=== PATIENT | male | born 1955 | race Caucasian/White ===

== ENCOUNTER 2016-07-07 14:50 | Emergency (ER) | payer BC ==
[2016-07-07 19:47] LABS: Urine Bilirubin Negative (Negative); Urine Glucose Negative (Negative); Urine Nitrite Negative (Negative)
[2016-07-07 20:13] LABS: Hematocrit 42 % (42-52); Hemoglobin 14.2 g/dl (14.0-18.0); Mean Corpuscular HGB Conc 34 g/dl (31-36); Mean Corpuscular Hemoglobin 33 pg (27-31); Mean Corpuscular Volume 97 fL (80-94); Mean Platelet Volume 8 um3 (7.4-10.4); Red Blood Count 4.37 10^6/ul (4.0-5.4); Red Cell Distribution Width 13 % (10.5-15); White Blood Count 5.8 10^3/ul (3.5-10.8)
[2016-07-07 20:30] LABS: ALT 36 U/L (7-52); AST 22 U/L (13-39); Albumin 4.1 g/dL (3.2-5.2); Alkaline Phosphatase 67 U/L (34-104); Anion Gap 5 mmol/L (2-11); BUN/Creatinine Ratio 17.9 (8-20); Blood Urea Nitrogen 15 mg/dL (6-24); CO2 Carbon Dioxide 23 mmol/L (22-32); Calcium 9.4 mg/dL (8.6-10.3); Chloride 110 mmol/L (101-111); EGFR African American 119.1 (>60); EGFR Non-African American 92.6 (>60); Globulin 2.5 g/dL (2-4); Glucose 98 mg/dL (70-100); Potassium 4.1 mmol/L (3.5-5.0); Sodium 138 mmol/L (133-145); Total Protein 6.6 g/dL (6.4-8.9)
--- NOTE | 2016-07-07 20:42 | RAD ---
HISTORY: Speech aphasia COMPARISONS: None TECHNIQUE: Multiple contiguous axial CT scans were obtained of the head without intravenous contrast. FINDINGS: HEMORRHAGE/INFARCT: There is no hemorrhage or acute infarct. MASSES/SHIFT: There is no mass or shift. EXTRA-AXIAL SPACES: There are no extra-axial fluid collections. SULCI AND VENTRICLES: The sulci and ventricles are normal in size and position for the patient's stated age. CEREBRUM: There are no focal parenchymal abnormalities. BRAINSTEM: There are no focal parenchymal abnormalities. CEREBELLUM: There are no focal parenchymal abnormalities. VESSELS: The vessels are grossly normal. PARANASAL SINUSES: The paranasal sinuses are clear. ORBITS: The orbits are unremarkable. BONES AND SOFT TISSUE: No bone or soft tissue abnormalities are noted. OTHER: None IMPRESSION: NO ACUTE INTRACRANIAL PATHOLOGY.
[2016-07-07 20:50] LABS: Alcohol < 10 mg/dL (<10)
--- NOTE | 2016-07-07 22:03 | ED ---
Boo Cordova Billy, scribed for Luiz Haji MD on 07/07/16 at 1941 . Complex/Multi-Sys Presentation - HPI Summary HPI Summary: Patient is a 61 year-old male coming to [facility] for evaluation of "panic attack" yesterday. Patient states that he had a sudden onset of weakness, confusion, and disorientation. He reports that one of his co-workers speaking to him at the time told him that he was speaking nonsense and using seemingly random works out of context. He also reports memory loss: he states that he was unable to recall his 's phone number despite calling his every day in the past. These symptoms lasted 3-4 hours before resolving spontaneously. He also reports a headache for the last 2 days, despite not having a history of headache. He states that at this time in the ED, he feels asymptomatic. - History Of Current Complaint Chief Complaint: EDGeneral Time Seen by Provider: 07/07/16 19:30 Hx Obtained From: Patient Onset/Duration: Sudden Onset, Lasting Hours, Resolved Timing: Constant Severity Currently: Moderate Severity Initially: Moderate Location: Negative Aggravating Factor(s): none Alleviating Factor(s): spontaneous resolution Associated Signs And Symptoms: Positive: Confusion, Weakness, Headache, Other - disorientation, memory loss, aphasia, "panic attack" - Allergies/Home Medications Allergies/Adverse Reactions: Allergies Allergy/AdvReac Type Severity Reaction Status Date / Time No Known Allergies Allergy Verified 04/07/15 13:25 PMH/Surg Hx/FS Hx/Imm Hx Endocrine/Hematology History: Denies: Hx Diabetes Cardiovascular History: Reports: Hx Hypercholesterolemia, Hx Hypertension - ON MEDS Denies: Hx Congestive Heart Failure, Hx Pacemaker/ICD Sensory History: Reports: Hx Contacts or Glasses, 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 Vacectomy 1994. 11/22/2014 - lap appy Hx Anesthesia Reactions: No Infectious Disease History: No Infectious Disease History: Denies: Traveled Outside the [place] in Last 30 Days - Family History Known Family History: Positive: Hypertension, Other - dementia - Social History Alcohol Use: Occasionally Alcohol Amount: 2 days a week Substance Use Type: Reports: None Smoking Status (MU): Never Smoked Tobacco Review of Systems Negative: Fever Neurological: Other - aphasia, confusion, disorientation, "panic attack," memory loss Positive: Headache, Weakness All Other Systems Reviewed And Are Negative: Yes Physical Exam - Summary Physical Exam Summary: VITAL SIGNS: Reviewed. GENERAL: Patient is a well developed and nourished male who is lying comfortable in the stretcher. Patient is not in any acute respiratory distress. HEAD AND FACE: No signs of trauma. No ecchymosis, hematomas or skull depressions. No sinus tenderness. EYES: PERRLA, EOMI x 2, No injected conjunctiva, no nystagmus. No photophobia. EARS: Hearing grossly intact. Ear canals and tympanic membranes are within normal limits. MOUTH: Oropharynx within normal limits. NECK: Supple, trachea is midline, no adenopathy, no JVD, no carotid bruit, no c- spine tenderness, neck with full ROM. No meningeal signs, no Kernig's or brudzinskis signs. CHEST: Symmetric, no tenderness at palpation LUNGS: Clear to auscultation bilaterally. No wheezing or crackles. CVS: Regular rate and rhythm, S1 and S2 present, no murmurs or gallops appreciated. ABDOMEN: Soft, non-tender. No signs of distention. No rebound no guarding, and no masses palpated. Bowel sounds are normal. EXTREMITIES: FROM in all major joints, no edema, no cyanosis or clubbing. NEURO: Alert and oriented x 3. No acute neurological deficits. Speech is normal and follows commands. NIH score is 0 SKIN: Dry and warm Triage Information Reviewed: Yes Vital Signs On Initial Exam: Initial Vitals Temp Pulse Resp BP Pulse Ox 97.9 F 80 20 160/97 96 07/07/16 14:53 07/07/16 14:53 07/07/16 14:53 07/07/16 14:53 07/07/16 14:53 Vital Signs Reviewed: Yes Diagnostics - Vital Signs Vital Signs Temp Pulse Resp BP Pulse Ox 07/07/16 18:24 98.1 F 76 20 136/81 96 07/07/16 17:35 98.1 F 70 20 130/71 97 07/07/16 16:25 98.1 F 77 20 120/72 95 07/07/16 14:53 97.9 F 80 20 160/97 96 - Laboratory Lab Results: Lab Results 07/07/16 07/07/16 Range/Units 19:38 20:05 WBC 5.8 (3.5-10.8) 10^3/ul RBC 4.37 (4.0-5.4) 10^6/ul Hgb 14.2 (14.0-18.0) g/dl Hct 42 (42-52) % MCV 97 H (80-94) fL MCH 33 H (27-31) pg MCHC 34 (31-36) g/dl RDW 13 (10.5-15) % Plt Count 341 (150-450) 10^3/ul MPV 8 (7.4-10.4) um3 Neut % (Auto) 40.1 (38-83) % Lymph % (Auto) 43.5 (25-47) % [place] % (Auto) 8.0 (1-9) % Eos % (Auto) 6.8 H (0-6) % Baso % (Auto) 1.6 (0-2) % Absolute Neuts (auto) 2.3 (1.5-7.7) 10^3/ul Absolute Lymphs (auto) 2.5 (1.0-4.8) 10^3/ul Absolute Monos (auto) 0.5 (0-0.8) 10^3/ul Absolute Eos (auto) 0.4 (0-0.6) 10^3/ul Absolute Basos (auto) 0.1 (0-0.2) 10^3/ul Absolute Nucleated RBC 0 10^3/ul Nucleated RBC % 0 Urine Color Yellow Urine Appearance Clear Urine pH 5.0 (5-9) Ur Specific [place] 1.017 (1.010-1.030) Urine Protein Negative (Negative) Urine Ketones Negative (Negative) Urine Blood Negative (Negative) Urine Nitrate Negative (Negative) Urine Bilirubin Negative (Negative) Urine Urobilinogen Negative (Negative) Ur Leukocyte Esterase Negative (Negative) Urine Glucose Negative (Negative) Result Diagrams: 07/07/16 20:05 07/07/16 20:05 Lab Statement: Any lab studies that have been ordered have been reviewed, and results considered in the medical decision making process. - CT brain CT Interpretation: No Acute Changes CT Interpretation Completed By: Radiologist Re-Evaluation - Re-Evaluation First Eval Re-Evaluation Time: 21:58 Change: Unchanged Comment: Continues to be asymptomatic. Complex Multi-Symp Course/Dx Assessment/Plan: Patient is a 61 year-old male coming to [facility] for evaluation of "panic attack" yesterday. Patient states that he had a sudden onset of weakness, confusion, and disorientation. He reports that one of his co-workers speaking to him at the time told him that he was speaking nonsense and using seemingly random works out of context. He also reports memory loss: he states that he was unable to recall his 's phone number despite calling his every day in the past. These symptoms lasted 3-4 hours before resolving spontaneously. He also reports a headache for the last 2 days, despite not having a history of headache. He states that at this time in the ED, he feels asymptomatic. Bloodwork WNL. CT shows no acute intracranial pathology. EKG shows NSR without ST elevations. In the ED course, patient continues to be asypmtomatic. I discussed my physical exam findings and test results with Dr. Urban who recommended to discharge the patient with ASA and to have him follow up as an outpatient in his office. He also agreed to arrange for MRI, carotid doppler, and echo for further testing to r/o small vessel ischemic disease. Before discharge, pt continues to be A&Ox3 and neurologically intact. Patient will follow up with Dr. Urban next week. He was given instructions to return to the ED with slurred speech, facial droop, upper/lower extremity weakness, tingling, or numbness. He understands and agrees. - Diagnoses Differential Diagnoses/HQI/PQRI: CVA, Other - TIA, anxiety Provider Diagnoses: anxiety vs. TIA - Physician Notifications Discussed Care Of Patient With: Dr. Urban (neurology) @ [id number]: recommends discharge on ASA and follow up as outpatient; Dr. Urban agreed to arrange for MRI, carotid doppler, and echo to r/o small vessel ischemic disease. Discharge - Discharge Plan Condition: Stable Disposition: HOME Patient Education Materials: Panic Attack (ED), Anxiety (ED), Transient Ischemic Attack (ED) Referrals: Gokul Mcginnis MD [Primary Care Provider] - Flaco Urban MD [Medical Doctor] - Additional Instructions: FOLLOW UP WITH DR. URBAN (NEUROLOGIST). The documentation as recorded by the jeffreyibBoo godwin Billy accurately reflects the service I personally performed and the decisions made by me, Luiz Haji MD.
[2016-07-07 22:06] VITALS: BP 109/68
== END 2016-07-07 22:13 | disposition home or self-care (01) ==
LOC: ED 14:50
DX: F41.9 Anxiety disorder, unspecified (principal); G45.9 Transient cerebral ischemic attack, unspecified; R41.0 Disorientation, unspecified; R41.3 Other amnesia; R47.01 Aphasia; R53.1 Weakness; R51 Headache
CPT/HCPCS: 36415; 70450; 80053; 80320; 81003; 84484; 85025; 85610; 99282; G0480

== ENCOUNTER 2016-08-28 09:26 | Emergency (ER) | payer SELFPAY ==
[2016-08-28 09:30] VITALS: BP 139/86
[2016-08-28] MEDS ORDERED: Ibuprofen TAB* 800 MG PO ONE (10:38)
[2016-08-28] MEDS ORDERED: Tetan/Diph/Pertus SYR(Tdap)* 0.5 ML SYR(BOOSTRIX) use SYR IM ONE (10:38)
--- NOTE | 2016-08-28 10:57 | ED ---
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 Pt reports dog got scared and but him while he was holding him - he didn't want to drop him so held on. Pt has a bite injury to his Lt thumb which is painful. He has 2 longer lacerations along Lt forearm and some puncture bte wounds to Rt wrist area. He's not sure if his tetanus vaccine is completely UTD and would like booster today. He does know the dog has had all of its vaccines and no risk of rabies. Pt denies numbness, weakness in areas of bites. He has a residual Lt forearm paresthesia s/p shoulder injury w/ surgical repair in the past - nerve sx do not seem different today. Has not tried anything for pain as it's been feeling okay until cleaned out by nurse. Would like ibuprofen at this time. - History of Current Complaint Chief Complaint: EDAnimalBite Stated Complaint: DOG BITE COMMING FROM WORK Time Seen by Provider: 08/28/16 09:55 Hx Obtained From: Patient Pain Intensity: 2 - Allergies/Home Medications Allergies/Adverse Reactions: Allergies Allergy/AdvReac Type Severity Reaction Status Date / Time No Known Allergies Allergy Verified 08/28/16 09:30 PMH/Surg Hx/FS Hx/Imm Hx Previously Healthy: Yes Endocrine/Hematology History: Denies: Hx Anticoagulant Therapy, Hx Blood Disorders, Hx Diabetes, Hx Unexplained Bleeding Cardiovascular History: Reports: Hx Hypercholesterolemia, Hx Hypertension - ON MEDS Denies: Hx Congestive Heart Failure, Hx Pacemaker/ICD Sensory History: Reports: Hx Contacts or Glasses, 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 Vacectomy 1994. 11/22/2014 - lap appy Hx Anesthesia Reactions: No - Immunization History Immunizations Up to Date: Unable to Obtain/Confirm - tetanus Infectious Disease History: No Infectious Disease History: Denies: Hx of Known/Suspected MRSA, Traveled Outside the [place] in Last 30 Days - Family History Known Family History: Positive: Hypertension, Other - dementia - Social History Occupation: Employed Full-time Lives: With Family Alcohol Use: Rare Hx Substance Use: No Substance Use Type: Reports: None Hx Tobacco Use: No Smoking Status (MU): Never Smoked Tobacco Review of Systems Positive: no symptoms reported Musculoskeletal: Other - see HPI Skin: Other - see HPI Neurological: Other - see HPI Psychological: Normal All Other Systems Reviewed And Are Negative: Yes Physical Exam Triage Information Reviewed: Yes Vital Signs On Initial Exam: Initial Vitals Temp Pulse Resp BP Pulse Ox 97.0 F 79 16 139/86 98 08/28/16 09:27 08/28/16 09:27 08/28/16 09:27 08/28/16 09:27 08/28/16 09:27 Vital Signs Reviewed: Yes Appearance: Positive: Well-Appearing, No Pain Distress, Well-Nourished Skin: Positive: Warm - 2 linear lacerations over t dorsal forearm - subcutaneous tissue observed here - no FB observed; Lt thumb w/ linear laceration over distal palmar pad aspect and a small sliver of the lateral lanula/eponychium is bleeding Head/Face: Positive: Normal Head/Face Inspection Eyes: Positive: Normal, EOMI ENT: Positive: Hearing grossly normal, Pharynx normal Respiratory/Lung Sounds: Positive: Breath Sounds Present Cardiovascular: Positive: Normal, Pulses are Symmetrical in both Upper and Lower Extremities Musculoskeletal: Positive: Normal, Strength/ROM Intact Neurological: Positive: Normal, Sensory/Motor Intact - baseline numbness over Lt central dorsal forearm, Alert, Oriented to Person Place, Time, CN Intact II- III Psychiatric: Positive: Normal Procedures - Laceration/Wound Repair 1 Location: upper extremity Description: Linear Anesthesia: Local, .5%, Marcaine Length, Depth and Shape: 2.5cm x 3mm Betadine Prep?: Yes Irrigated w/ Saline (ccs): 250 Laceration/Wound Explored: clean Closure: Single Layer Suture Type: Nylon - 5-0 Number of Sutures: 3 Layer Closure?: No Sterile Dressing Applied?: Yes - triple anbx + gauze wrap 2 Location: upper extremity Description: Linear Anesthesia: Local, .5%, Marcaine Length, Depth and Shape: 2.5cm x 3mm Betadine Prep?: Yes Irrigated w/ Saline (ccs): 250 Laceration/Wound Explored: clean Closure: Single Layer Suture Type: Nylon - 5-0 Number of Sutures: 4 Layer Closure?: No Sterile Dressing Applied?: Yes - triple anbx + gauze wrap Diagnostics - Vital Signs Vital Signs Temp Pulse Resp BP Pulse Ox 08/28/16 09:27 97.0 F 79 16 139/86 98 - Laboratory Lab Statement: Any lab studies that have been ordered have been reviewed, and results considered in the medical decision making process. Bite Injury Course/Dx - Diagnoses Provider Diagnosis: Dog bite of multiple sites of left upper arm, Dog bite of right hand, Open fracture of tuft of distal phalanx of left thumb Discharge - Discharge Plan Condition: Stable Disposition: HOME Prescriptions: Amoxicillin/Clavulanate TAB* [Augmentin TAB 875*] 875 mg PO BID #19 tab Patient Education Materials: Animal Bite (ED), Puncture Wound (ED), Thumb Fracture (ED) Forms: *Work Release Referrals: Lili Piña MD [Medical Doctor] - Additional Instructions: Keep your sutures dressing clean, dry and intact for 48 hours. After this time, you may remove dressings to gently wash with soap and water each day - rinse well and pat dry with clean cloth - reapply triple antibiotic ointment and clean gauze dressing. For your puncture wounds, you may soak daily in soapy water, rinse well alternating with epsom salt soak to reduce swelling and allow for drainage to prevent infection. Do not occlude with triple antibiotic dressing as this will impede drainage Rest, ice, elevate and may take ibuprofen with food as needed for pain and swelling relief. Keep a splint on your Left thumb until cleared by hand specialist. Follow-up with hand specialist in 3 days for wound check. Call tomorrow to schedule an appointment. Contact information included below. You may have your sutures removed in 10-14 days (or sooner if necessary - hand specialist will decide). *If you develop redness, swelling, purulent drainage, streaking, fever or pain with movement of wrist/fingers, return to ED.
[2016-08-28] MEDS ORDERED: Amoxicillin/Clavulanate TAB* 875 MG PO ONE (10:59)
--- NOTE | 2016-08-28 11:30 | RAD ---
INDICATION: .Dogbite left thumb. TECHNIQUE: 3 views of the left thumb were obtained. FINDINGS: There is soft tissue swelling adjacent to the distal phalanx. There is a small fracture fragment arising from the medial tuft of the distal phalanx measuring 2 mm in size. No other fractures are seen. IMPRESSION: FRACTURE OF THE TUFT OF THE DISTAL PHALANX.
== END 2016-08-28 12:54 | disposition home or self-care (01) ==
LOC: ED 09:26
DX: S62.502B Fracture of unspecified phalanx of left thumb, initial encounter for open fracture (principal); S41.132A Puncture wound without foreign body of left upper arm, initial encounter; S61.431A Puncture wound without foreign body of right hand, initial encounter; W54.0XXA Bitten by dog, initial encounter; Y93.9 Activity, unspecified; Y92.9 Unspecified place or not applicable
CPT/HCPCS: 90715; 96372; 99282; A9270-GY

== ENCOUNTER 2017-10-08 18:10 | Emergency (ER) | payer BC ==
[2017-10-08 18:15] VITALS: BP 164/102
[2017-10-08] MEDS ORDERED: Lidocaine 1% INJ* 10 MG/ML 30 ML SDV INJ ONE (18:17)
--- NOTE | 2017-10-08 18:34 | ED ---
Laceration/Wound HPI - HPI Summary HPI Summary: 62M presents with fish hook in his nose today. He states he was releasing the fish hook from the fish when he got it caught in his nose. He could not remove the hook. The area is currently oozing. no other injury. tetanus is up to date. no blood in nasal passage. - History of Current Complaint Stated Complaint: FISH HOOK IN NOSE Time Seen by Provider: 10/08/17 18:16 Pain Intensity: 4 - Allergy/Home Medications Allergies/Adverse Reactions: Allergies Allergy/AdvReac Type Severity Reaction Status Date / Time No Known Allergies Allergy Verified 09/16/16 08:18 PMH/Surg Hx/FS Hx/Imm Hx Endocrine/Hematology History: Denies: Hx Anticoagulant Therapy, Hx Blood Disorders, Hx Diabetes, Hx Unexplained Bleeding Cardiovascular History: Reports: Hx Hypercholesterolemia, Hx Hypertension - ON MEDS Denies: Hx Congestive Heart Failure, Hx Pacemaker/ICD History: Denies: Hx Renal Disease Sensory History: Reports: Hx Contacts or Glasses, 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 Vasectomy 1994. 11/22/2014 - lap appy. LEFT SHOULDER ROTATOR CUFF REPAIR 07/2015 Hx Anesthesia Reactions: No Infectious Disease History: No Infectious Disease History: Denies: Hx of Known/Suspected MRSA, Traveled Outside the [place] in Last 30 Days - Family History Known Family History: Positive: Hypertension, Other - dementia - Social History Alcohol Use: Rare Alcohol Amount: 2 days a week Hx Substance Use: No Substance Use Type: Reports: None Hx Tobacco Use: No Smoking Status (MU): Never Smoked Tobacco Review of Systems Negative: Fever Negative: Chest Pain Negative: Shortness Of Breath Positive: Other - fish hook in nose All Other Systems Reviewed And Are Negative: Yes Physical Exam Triage Information Reviewed: Yes Vital Signs On Initial Exam: Initial Vitals Temp Pulse Resp BP Pulse Ox 97.7 F 77 18 164/102 95 10/08/17 18:13 10/08/17 18:13 10/08/17 18:13 10/08/17 18:13 10/08/17 18:13 Vital Signs Reviewed: Yes Appearance: Positive: Well-Appearing Skin: Positive: Warm, Dry, Other - fish hook left side nose Head/Face: Positive: Normal Head/Face Inspection Eyes: Positive: Normal, EOMI, BRENDAN, Conjunctiva Clear ENT: Positive: Normal ENT inspection, Pharynx normal, TMs normal Respiratory/Lung Sounds: Positive: Clear to Auscultation, Breath Sounds Present Cardiovascular: Positive: Normal, RRR Musculoskeletal: Positive: Normal Neurological: Positive: Normal Psychiatric: Positive: Normal Procedures - Laceration/Wound Repair 1 Location: face Length, Depth and Shape: made 1/2cm superficial laceration to nose to remove fish hook Laceration/Wound Explored: foreign body removed Closure: Single Layer Suture Type: Prolene Number of Sutures: 2 Diagnostics - Vital Signs Vital Signs Temp Pulse Resp BP Pulse Ox 10/08/17 18:13 97.7 F 77 18 164/102 95 - Laboratory Lab Statement: Any lab studies that have been ordered have been reviewed, and results considered in the medical decision making process. Laceration Repair Course/Dx - Course Course Of Treatment: 62M presents with fish hook in his nose today. He states he was releasing the fish hook from the fish when he got it caught in his nose. He could not remove the hook. The area is currently oozing. no other injury. tetanus is up to date. no blood in nasal passage. on exam has fish hook in left nostril. placed lidocaine in area and created 1/2cm incision to remove hook. placed 2 sutures in close incision. told to keep clean. patient understand and agrees with plan. - Differential Dx Differental Diagnoses: Abrasion, Avulsion, Foreign Body - Clinical Impression Provider Diagnoses: Foreign body of nose Discharge - Sign-Out/Discharge Documenting (check all that apply): Discharge/Admit/Transfer - Discharge Plan Condition: Good Disposition: HOME Patient Education Materials: Care For Your Stitches (ED) Referrals: Gokul Mcginnis MD [Primary Care Provider] - Additional Instructions: wash area twice a day Take Tylenol or ibuprofen for pain every 6 hours Return to ED or primary for suture removal in 5 days Return to ED if develop signs of infection such as fever, spreading redness, or pus formation - Billing Disposition and Condition Condition: GOOD Disposition: HOME
== END 2017-10-08 19:10 | disposition home or self-care (01) ==
LOC: ED 18:10
DX: S01.21XA Laceration without foreign body of nose, initial encounter (principal); W45.8XXA Other foreign body or object entering through skin, initial encounter; W22.8XXA Striking against or struck by other objects, initial encounter; Y93.89 Activity, other specified; Y92.9 Unspecified place or not applicable
CPT/HCPCS: 12011; 99281

== ENCOUNTER 2018-07-30 20:31 | Emergency (ER) | payer BC ==
[2018-07-30 21:03] VITALS: BP 116/78
--- NOTE | 2018-07-30 22:06 | UC ---
Back Pain HPI - HPI Summary HPI Summary: 63-year-old male comes to clinic with a chief complaint of right flank pain. Started about 2 days ago. Pain is less at rest it's worse with twisting turning bending. He did shovel snow 2-3 days ago. Denies any anterior abdominal pain. Pain radiates up the right posterior thoracic chest. No anterior chest pain. The pain does not radiate down to the groin. He has not noticed any urinary frequency or urgency. He does have a history of a urethral stricture. Does not have any pain in the suprapubic region or the left flank. He's had his appendix out no other abdominal surgeries. Normal bowel movements. Normal appetite. No fevers or chills. No rash. Positive URI Sx with cough and phlegm production. Several pneumonias in the last few years. Uses CPAP. - History of Current Complaint Chief Complaint: UCGU Stated Complaint: ABDOMINAL PAIN, AND SIDE PAIN Time Seen by Provider: 07/30/18 21:23 Pain Intensity: 8 - Allergies/Home Medications Allergies/Adverse Reactions: Allergies Allergy/AdvReac Type Severity Reaction Status Date / Time No Known Allergies Allergy Verified 07/30/18 21:03 Home Medications: Home Medications Alprazolam XR (NF) [Xanax XR (NF)] 1 mg PO DAILY 07/30/18 [History Confirmed 09/14] Mirtazapine TAB* [Remeron TAB*] 7.5 mg PO BEDTIME 07/30/18 [History Confirmed ] Pregabalin CAP(*) [Lyrica CAP(*)] 200 mg PO DAILY 07/30/18 [History Confirmed ] Rosuvastatin Calcium [Crestor] 20 mg PO DAILY 07/30/18 [History Confirmed ] PMH/Surg Hx/FS Hx/Imm Hx Previously Healthy: Yes - URETHRAL STRICURE Endocrine History: Dyslipidemia Cardiovascular History: Hypertension Respiratory History: Pneumonia Other Respiratory History: Uses CPAP Other History Of: Negative For: Anticoagulant Therapy - Surgical History Surgical History: Yes Surgery Procedure, Year, and Place: Tonsilectomy 3 years old. Vasectomy 1994. 11/22/2014 - lap appy. LEFT SHOULDER ROTATOR CUFF REPAIR 07/2015 - Family History Known Family History: Positive: Hypertension, Other - dementia - Social History Alcohol Use: Rare Alcohol Amount: 2 days a week Substance Use Type: None Smoking Status (MU): Never Smoked Tobacco - Immunization History Most Recent Influenza Vaccination: 2013 Most Recent Tetanus Shot: 4-5 years ago Most Recent Pneumonia Vaccination: none Review of Systems All Other Systems Reviewed And Are Negative: Yes Constitutional: Positive: Negative Skin: Positive: Negative Eyes: Positive: Negative ENT: Positive: Negative Respiratory: Positive: Negative Cardiovascular: Positive: Other - SEE HPI Gastrointestinal: Positive: Other - SEE HPI Genitourinary: Positive: Negative. Negative: Dysuria, Hematuria, Frequency, Urgency, Vaginal/Penile Burning Motor: Positive: Negative Neurovascular: Positive: Negative Musculoskeletal: Positive: Other: - SEE HPI Neurological: Positive: Negative Psychological: Positive: Negative Is Patient Immunocompromised?: No Physical Exam Triage Information Reviewed: Yes Appearance: Well-Appearing, Well-Nourished, Pain Distress - MILD WITH ROM Vital Signs: Initial Vital Signs Temp 98.6 F 07/30/18 20:57 Pulse 84 07/30/18 20:57 Resp 20 07/30/18 20:57 BP 116/78 07/30/18 20:57 Pulse Ox 92 07/30/18 20:57 Vital Signs Reviewed: Yes Eye Exam: Normal Eyes: Positive: Conjunctiva Clear Neck exam: Normal Neck: Positive: Supple Respiratory: Positive: Lungs clear, Normal breath sounds, No respiratory distress Cardiovascular: Positive: RRR Abdomen Description: Positive: Nontender, Soft, CVA Tenderness (R) Bowel Sounds: Positive: Present Musculoskeletal Exam: Normal Musculoskeletal: Positive: Strength Intact, ROM Intact Neurological Exam: Normal Neurological: Positive: Alert, Muscle Tone Normal Psychological Exam: Normal Psychological: Positive: Normal Response To Family, Age Appropriate Behavior Skin Exam: Normal Back Pain Course/Dx - Course Course Of Treatment: EXAM: CT Chest Without Contrast. EXAM DATE/TIME: 2018 9:54 PM. CLINICAL HISTORY: 63 years old, male; Pain; Chest pain; Right- sided chest pain; Patient HX: Right sided lower quadrant pain radiates posteriorly and up back. No other. abdominal symptoms. Pain radiates up back and into right upper back. Right. sided chest pain at times. ; Additional info : RT flank/rt posterior thoracic. pain. TECHNIQUE: Axial computed tomography images of the chest without intravenous contrast. All CT scans at this facility use at least one of these dose optimization. techniques: automated exposure control; mA and/or kV adjustment per patient. size (includes targeted exams where dose is matched to clinical indication); or. iterative reconstruction. Coronal and sagittal reformatted images were created and reviewed. COMPARISON: No relevant prior studies available. FINDINGS: Thyroid : No thyroid nodules. Lungs: Atelectasis versus parenchymal scarring anterior segment right upper. lobe along the horizontal fissure. Combination of atelectasis, brachial. scarring, and consolidation involving the superior and posterior basal segments. of the right lower lobe. Associated tenting of the adjacent oblique fissure. Remaining lungs are clear. No bronchiectasis, peribronchial thickening, or. luminal defects. Pleural space: No effusion or pneumothorax. Heart: Normal. No cardiomegaly. No pericardial effusion. Aorta: Normal. No aortic aneurysm. Lymph nodes: Normal. No enlarged lymph nodes. Bones/joints: The thoracic spine demonstrates mild degenerative changes at. multiple levels. No fractures. No suspicious bone lesions. Soft tissues: Normal. IMPRESSION: Right lower lobe pneumonia superimposed on adjacent parenchyma scarring and/or. atelectasis. Additional parenchymal scarring right upper lobe along the. fissure. Order Information: CT ABD/PEL W/O. Accession Number: [id number]. CPT: 13730. EXAM: CT Abdomen and Pelvis Without Contrast. EXAM DATE/TIME: 07/30/2018 9:45 PM. CLINICAL HISTORY: 63 years old, male; Pain; Abdominal pain; Localized; Right lower quadrant. (rlq); Patient HX : Right sided lower quadrant pain radiates posteriorly and up. back. No other abdominal symptoms. Pain radiates up back and into right upper. back. Right sided chest pain at times. ; Additional info: Right flank pain. TECHNIQUE: Axial computed tomography images of the abdomen and pelvis without contrast. All CT scans at this facility use at least one of these dose optimization. techniques: automated exposure control; mA and/or kV adjustment per patient. size (includes targeted exams where dose is matched to clinical indication); or. iterative reconstruction. Coronal and sagittal reformatted images were created and reviewed. COMPARISON: A/P W CT ABD/PEL W 11/21/2014 10:29 PM. FINDINGS: Lower thorax: Subsegmental atelectasis versus parenchymal scarring posterior. basal segment right lower lobe superimposed pneumonia also considered. ABDOMEN: Liver: Normal. No mass. Gallbladder and bile ducts: Normal. No calcified stones. No ductal dilation. Pancreas: Normal. No ductal dilation. Spleen: Normal. No splenomegaly. Adrenals: Normal. No mass. Kidneys and ureters: No renal calculi or pelvocaliectasis. Stomach and bowel: Incompletely distended grossly normal stomach. Normal. caliber small bowel. No colonic masses or segmental wall thickening. Appendix: Surgically absent appendix. PELVIS: Bladder: Thin-walled bladder with no focal nodularity, perivesicular. stranding, or calcifications. Reproductive: Normal sized prostate. Normal seminal vesicles. ABDOMEN and PELVIS: Intraperitoneal space: Normal. No free air. No significant fluid collection. Bones/joints: The spine demonstrates mild degenerative changes at multiple. levels. No fractures. No suspicious bone lesions. Soft tissues: Fat-containing direct right inguinal hernia. No stranding. Vasculature: The aorta demonstrates mild atherosclerotic calcification. Lymph nodes: Normal. No enlarged lymph nodes. IMPRESSION: 1. Likely pneumonia posterior right lower lobe. 2. Right inguinal hernia. No strangulation. To contact [facility] with a general question: Operations Center - . For direct physician to physician contact: Physician Hotline - . [facility] ([facility] Facility ID #[id number]). . <Electronically signed by Liana De La Cruz MD in OV> 07/30/189. I discussed the CT report with the patient and his . Patient's had several episodes of pneumonia on the right side. He does use CPAP at night. He tells me that azithromycin helps him with his last pneumonia in February 2018. We'll start azithromycin again this time. Plan is to follow-up with his primary care doctor and pulmonology. We discussed going to the emergency department if he worsens or any questions or concerns. - Differential Dx/Diagnosis Provider Diagnosis: Right flank pain, Pneumonia Discharge - Sign-Out/Discharge Documenting (check all that apply): Patient Departure All imaging exams completed and their final reports reviewed: Yes - Discharge Plan Condition: Stable Disposition: HOME Prescriptions: Azithromycin 250 mg PO DAILY #4 tablet Patient Education Materials: Flank Pain (ED), Community Acquired Pneumonia (ED) Referrals: Gokul Mcginnis MD [Primary Care Provider] - Juliette Saab MD [Medical Doctor] - Additional Instructions: FOLLOW UP WITH YOUR DOCTOR AND PULMONOLOGY, DR SAAB. GO TO THE EMERGENCY DEPARTMENT FOR ANY WORSENING OF YOUR CONDITION; PAIN, FEVER , YOU FEEL ILL OR QUESTIONS OR CONCERNS. - Billing Disposition and Condition Condition: STABLE Disposition: Home
[2018-07-30] MEDS ORDERED: Azithromycin TAB* 250 MG PO ONE (22:49)
[2018-07-31 12:35] LABS: ABS Basophils 0.1 10^3/ul (0-0.2); ABS Eosinophils 0.3 10^3/ul (0-0.6); ABS Lymphocytes 1.8 10^3/ul (1.0-4.8); ABS Monocytes 0.8 10^3/ul (0-0.8); ABS Neutrophils 5.8 10^3/ul (1.5-7.7); ABS Nucleated RBC 0 10^3/ul; Eosinophil % 3.5 %; Hematocrit 40 % (42-52); Hemoglobin 13.7 g/dl (14.0-18.0); Lymphocyte % 20.1 %; Mean Corpuscular HGB Conc 34 g/dl (31-36); Mean Corpuscular Hemoglobin 33 pg (27-31); Mean Corpuscular Volume 96 fL (80-94); Mean Platelet Volume 9.6 fL (7.4-10.4); Nucleated Red Blood Cells % 0; Platelet Count 276 10^3/ul (150-450); Red Cell Distribution Width 13 % (10.5-15); White Blood Count 8.9 10^3/ul (3.5-10.8)
[2018-07-31 12:39] LABS: Calcium 8.8 mg/dL (8.6-10.3); Potassium 4.3 mmol/L (3.5-5.0); Total Bilirubin 0.5 mg/dL (0.2-1.0)
[2018-07-31 12:45] LABS: Albumin/Globulin Ratio 1.7 (1-3); BUN/Creatinine Ratio 12.4 (8-20); C Reactive Protein 117.55 mg/L (<8.01); EGFR Non-African American 71.1 (>60); Globulin 2.3 g/dL (2-4); Total Protein 6.3 g/dL (6.4-8.9)
== END 2018-07-30 23:02 | disposition home or self-care (01) ==
LOC: UCEAST 20:31
DX: R10.9 Unspecified abdominal pain (principal); J18.9 Pneumonia, unspecified organism
CPT/HCPCS: 36415; 71250; 74176; 80053; 81003; 83690; 85025; 86140; 99212; A9270-GY; G0463

== ENCOUNTER 2018-07-31 03:25 | Inpatient (IN) | payer BC ==
--- NOTE | 2018-07-31 03:39 | ED ---
Abdominal Pain/Male - HPI Summary HPI Summary: Patient is a 63 y/o M presenting to ED via ambulance with complaints of lower abdominal pain for the past two days. He denies vomiting, fever. Patient was at [facility] today, had CT abd/pel, kidney stone was ruled out, patient was prescribed Z-pack. PMHx of HTN, he notes that he takes BP meds. Hx of PNA last February. - History of Current Complaint Stated Complaint: ABD PAIN Pain Intensity: 7 - Allergies/Home Medications Allergies/Adverse Reactions: Allergies Allergy/AdvReac Type Severity Reaction Status Date / Time No Known Allergies Allergy Verified 07/30/18 21:03 PMH/Surg Hx/FS Hx/Imm Hx Endocrine/Hematology History: Denies: Hx Anticoagulant Therapy, Hx Blood Disorders, Hx Diabetes, Hx Unexplained Bleeding Cardiovascular History: Reports: Hx Hypercholesterolemia, Hx Hypertension - ON MEDS Denies: Hx Congestive Heart Failure, Hx Pacemaker/ICD Respiratory History: Reports: Hx Pneumonia History: Denies: Hx Renal Disease Sensory History: Reports: Hx Contacts or Glasses, 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 Vasectomy 1994. 11/22/2014 - lap appy. LEFT SHOULDER ROTATOR CUFF REPAIR 07/2015 Hx Anesthesia Reactions: No Infectious Disease History: No Infectious Disease History: Denies: Hx of Known/Suspected MRSA, Traveled Outside the [place] in Last 30 Days - Family History Known Family History: Positive: Hypertension, Other - dementia - Social History Alcohol Use: Rare Alcohol Amount: 2 days a week Hx Substance Use: No Substance Use Type: Reports: None Hx Tobacco Use: No Smoking Status (MU): Never Smoked Tobacco Physical Exam Vital Signs On Initial Exam: Initial Vitals Temp Pulse Resp BP Pulse Ox 98.6 F 87 24 138/81 93 07/31/18 03:30 07/31/18 03:30 07/31/18 03:30 07/31/18 03:30 07/31/18 03:30 Diagnostics - Vital Signs Vital Signs Temp Pulse Resp BP Pulse Ox 07/31/18 03:30 98.6 F 87 24 138/81 93 - Laboratory Lab Statement: Any lab studies that have been ordered have been reviewed, and results considered in the medical decision making process. Discharge - Discharge Plan Referrals: Gokul Mcginnis MD [Primary Care Provider] - - Attestation Statements Document Initiated by Scribe: Yes
[2018-07-31] MEDS ORDERED: Levofloxacin 750 MG IVPREMIX(* 750 MG/150 ML BAG IVPB ONE (03:41)
[2018-07-31] MEDS ORDERED: NS 0.9% 1000 ML** 2,000 ML IV ONE (03:41)
[2018-07-31] MEDS ORDERED: Ketorolac INJ* 30 MG/ML 1 ML VIAL IV PUSH ONE (03:42)
--- NOTE | 2018-07-31 03:44 | ED ---
Complex/Multi-Sys Presentation - HPI Summary HPI Summary: Patient is a 63 y/o M presenting to ED via EMS with complaints of lower abdominal pain for the past two days. He denies vomiting, fever. Patient also reports that he has been experiencing SOB and cough for the past few weeks as well. [facility], had CT abd/pel and CT chest. Kidney stone was ruled out, CT chest showed right lower lobe PNA, patient was prescribed with Z-pack. PMHx of HTN, he notes that he takes BP meds. Hx of PNA last February. On triage, pain is rated 7/10. Nothing is noted to aggravate/ alleviate Sx. Home medications and allergies are reviewed. - History Of Current Complaint Chief Complaint: EDChestWallPain Time Seen by Provider: 07/31/18 03:32 Hx Obtained From: Patient Onset/Duration: Lasting Days - abdominal pain for past two days, Lasting Weeks - cough and SOB for past few weeks, Still Present Timing: Constant, Days - abdominal pain for past two days, Weeks - cough and SOB for past few weeks Severity Currently: Severe - 7/10 Location: Pain At: - lower abdomen Aggravating Factor(s): nothing Alleviating Factor(s): nothing Associated Signs And Symptoms: Positive: SOB, Cough, Abdominal Pain - lower. Negative: Vomiting, Fever - Allergies/Home Medications Allergies/Adverse Reactions: Allergies Allergy/AdvReac Type Severity Reaction Status Date / Time No Known Allergies Allergy Verified 07/30/18 21:03 PMH/Surg Hx/FS Hx/Imm Hx Endocrine/Hematology History: Denies: Hx Anticoagulant Therapy, Hx Blood Disorders, Hx Diabetes, Hx Unexplained Bleeding Cardiovascular History: Reports: Hx Hypercholesterolemia, Hx Hypertension - ON MEDS Denies: Hx Congestive Heart Failure, Hx Pacemaker/ICD History: Denies: Hx Renal Disease Sensory History: Reports: Hx Contacts or Glasses Opthamlomology History: Reports: Hx Contacts or Glasses Psychiatric History: Reports: Hx Anxiety, Hx Panic Disorder, Other Psychiatric Issues/Disorders - Panic attacks - Surgical History Surgery Procedure, Year, and Place: Tonsilectomy 3 years old. Vasectomy 1994. 11/22/2014 - lap appy. LEFT SHOULDER ROTATOR CUFF REPAIR 07/2015 Hx Anesthesia Reactions: No Infectious Disease History: No Infectious Disease History: Denies: Hx of Known/Suspected MRSA, Traveled Outside the [place] in Last 30 Days - Family History Known Family History: Positive: Hypertension, Other - dementia - Social History Alcohol Use: Rare Alcohol Amount: 2 days a week Hx Substance Use: No Substance Use Type: Reports: None Hx Tobacco Use: No Smoking Status (MU): Never Smoked Tobacco Review of Systems Negative: Fever Positive: Shortness Of Breath, Cough Positive: Abdominal Pain. Negative: Vomiting All Other Systems Reviewed And Are Negative: Yes Physical Exam - Summary Physical Exam Summary: VITAL SIGNS: Reviewed. GENERAL: Patient is a well-developed and nourished male who is lying comfortable in the stretcher. Patient is not in any acute respiratory distress. HEAD AND FACE: No signs of trauma. No ecchymosis, hematomas or skull depressions. No sinus tenderness. EYES: PERRLA, EOMI x 2, No injected conjunctiva, no nystagmus. EARS: Hearing grossly intact. Ear canals and tympanic membranes are within normal limits. MOUTH: Oropharynx within normal limits. NECK: Supple, trachea is midline, no adenopathy, no JVD, no carotid bruit, no c- spine tenderness, neck with full ROM. CHEST: Symmetric, no tenderness at palpation LUNGS: Patient is tachypneic, rales over right lower and mid lung riley. No wheezing or crackles. CVS: Regular rate and rhythm, S1 and S2 present, no murmurs or gallops appreciated. ABDOMEN: Soft, non-tender. No signs of distention. No rebound no guarding, and no masses palpated. Bowel sounds are normal. EXTREMITIES: FROM in all major joints, no edema, no cyanosis or clubbing. NEURO: Alert and oriented x 3. No acute neurological deficits. Speech is normal and follows commands. SKIN: Dry and warm Triage Information Reviewed: Yes Vital Signs On Initial Exam: Initial Vitals Temp Pulse Resp BP Pulse Ox 98.6 F 87 24 138/81 93 07/31/18 03:30 07/31/18 03:30 07/31/18 03:30 07/31/18 03:30 07/31/18 03:30 Vital Signs Reviewed: Yes Diagnostics - Vital Signs Vital Signs Temp Pulse Resp BP Pulse Ox 07/31/18 03:30 98.6 F 87 24 138/81 93 - Laboratory Result Diagrams: 07/31/18 04:00 07/31/18 04:00 Lab Statement: Any lab studies that have been ordered have been reviewed, and results considered in the medical decision making process. - Radiology chest x-ray Radiology Interpretation Completed By: ED Physician - dr. german Summary of Radiographic Findings: CXR showed right lower lobe infiltrate, pending official report. - CT CTA chest/thorax CT Interpretation Completed By: Radiologist Summary of CT Findings: IMPRESSION: 1. Extensive bilateral pulmonary emboli. 2. Heart strain. 3. Subsegmental atelectasis and/or infiltrate in the lower lobes bilaterally. The possibility of right lower lobe and right upper lobe pulmonary infarctions. would be a consideration. This report was reviewed by Dr. German. - EKG 0400 Cardiac Rate: NL - rate of 76 BPM EKG Rhythm: Sinus Rhythm Summary of EKG Findings: EKG showed sinus rhythm with rate of 76 BPM, normal axis, normal interval, no ischemic changes. Complex Multi-Symp Course/Dx Course Of Treatment: Patient is a 63 y/o M presenting to ED via EMS with complaints of lower abdominal pain for the past two days. He denies vomiting, fever. Patient also reports that he has been experiencing SOB and cough for the past few weeks as well. [facility], had CT abd/ pel and CT chest. Kidney stone was ruled out, CT chest showed right lower lobe PNA, patient was prescribed with Z-pack. PMHx of HTN, he notes that he takes BP meds. Hx of PNA last February. On physical exam, patient is tachypneic, rales over right lower and mid lung riley. EKG showed sinus rhythm with rate of 76 BPM, normal axis, normal interval, no ischemic changes. CXR showed right lower lobe infiltrate, pending official report. Influenza A, B was negative. Labs showed Hgb 13.1, Hct 39, MCV 96, MCH 32, absolute monos 0.9, INR 1.08, lactic acid 0.7, carbon dioxide 19, glucose 138, trop 0, CRP 117.08. During ED course , patient received fluids, toradol 15 mg IV PUSH, and Levaquin 750 mg in 150 mls @ 100 mls/hr IVPB ONCE. CTA CHEST/THORAX IMPRESSION: 1. Extensive bilateral pulmonary emboli. 2. Heart strain. 3. Subsegmental atelectasis and/ or infiltrate in the lower lobes bilaterally. The possibility of right lower lobe and right upper lobe pulmonary infarctions. would be a consideration. Lovenox 80 mg SUBCUT ED ONCE was given. Patient's case was discussed with Dr. Wood, Dr. Wood accepts for admission. - Diagnoses Provider Diagnoses: Pulmonary embolism - Physician Notifications Discussed Care Of Patient With: Celina Wood Time Discussed With Above Provider: 06:09 Instructed by Provider To: Other - 0604 - Dr. Juan Cannon communicates results of CTA chest/thorax. 06 - Patient's case was discussed with Dr. Wood , Dr. Wood accepts for admission. - Critical Care Time Critical Care Time: 30-74 min - 45 minutes CCT Discharge - Sign-Out/Discharge Documenting (check all that apply): Patient Departure - admit - Discharge Plan Condition: Good Disposition: ADMITTED TO [facility] Referrals: Gokul Mcginnis MD [Primary Care Provider] - - Attestation Statements Document Initiated by Scribe: Yes Documenting Scribe: BRENDAN TONY Provider For Whom Scribe is Documenting (Include Credential): SARAH GERMAN MD Scribe Attestation: IBRENDAN, scribed for SARAH GERMAN MD on 07/31/18 at 0614. Status of Scribe Document: Ready
[2018-07-31 04:08] LABS: Influenza A Molecular NEGATIVE (Negative); Influenza B Molecular NEGATIVE (Negative)
[2018-07-31 04:11] LABS: ABS Basophils 0.1 10^3/ul (0-0.2); ABS Eosinophils 0.3 10^3/ul (0-0.6); ABS Lymphocytes 1.4 10^3/ul (1.0-4.8); ABS Monocytes 0.9 10^3/ul (0-0.8); ABS Neutrophils 6.3 10^3/ul (1.5-7.7); ABS Nucleated RBC 0 10^3/ul; Eosinophil % 3.6 %; Hematocrit 39 % (42-52); Hemoglobin 13.1 g/dl (14.0-18.0); Lymphocyte % 15.9 %; Mean Corpuscular HGB Conc 34 g/dl (31-36); Mean Corpuscular Hemoglobin 32 pg (27-31); Mean Corpuscular Volume 96 fL (80-94); Nucleated Red Blood Cells % 0; Platelet Count 264 10^3/ul (150-450); Red Blood Count 4.07 10^6/ul (4.00-5.40); Red Cell Distribution Width 13 % (10.5-15)
[2018-07-31 04:22] LABS: Activated Partial Thrombo Time 29.7 seconds (26.0-36.3); INR 1.08 (0.77-1.02)
[2018-07-31 04:29] LABS: Albumin 3.9 g/dL (3.2-5.2); Albumin/Globulin Ratio 1.4 (1-3); C Reactive Protein 117.08 mg/L (<8.01); Calcium 8.6 mg/dL (8.6-10.3); EGFR Non-African American 81.8 (>60); Globulin 2.7 g/dL (2-4); Potassium 3.8 mmol/L (3.5-5.0); Total Bilirubin 0.5 mg/dL (0.2-1.0); Total Protein 6.6 g/dL (6.4-8.9)
[2018-07-31] MEDS ORDERED: Iohexol 350* (CONTRAST) 500 ML MDV IV ONE (04:53)
[2018-07-31] MEDS ORDERED: Enoxaparin(*) 80 MG/0.8 ML SYR SUBCUT ONE (06:08)
[2018-07-31] MEDS ORDERED: Ondansetron INJ* 2 MG/ML VIAL IV ONE (06:23)
[2018-07-31] MEDS ORDERED: Morphine VIAL* 10 MG/ML 1 ML VIAL IV ONE (06:23)
[2018-07-31] MEDS ORDERED: Ketorolac INJ* 30 MG/ML 1 ML VIAL IV PUSH PRN (08:05)
[2018-07-31] MEDS: Morphine VIAL* 4 MG/ML VIAL (1 ml vial) IV PRN ×5 (08:22→23:47)
[2018-07-31] MEDS: Atorvastatin* 40 MG TAB PO SCH (09:29)
[2018-07-31] MEDS: Tamsulosin CAP* 0.4 MG PO SCH (09:30)
[2018-07-31] MEDS: Pregabalin CAP(*) 100 MG PO SCH (09:30)
[2018-07-31] MEDS: ALPRAZolam TAB* 0.5 MG PO SCH ×2 (09:30→20:23)
--- NOTE | 2018-07-31 09:59 | HP ---
HISTORY AND PHYSICAL: DATE OF ADMISSION: 07/31/18 PRIMARY CARE PROVIDER: Gokul Mcginnis MD CHIEF COMPLAINT: Excruciating right-sided flank pain preventing walking; shortness of breath and productive cough for many weeks. HISTORY OF PRESENT ILLNESS: Paras Tovar is a 63-year-old male with past medical history of anxiety, depression, restless leg syndrome, hypertension, hyperlipidemia, GERD, some diastolic dysfunction on last echocardiogram in August 2016. His health has taken a turn for the worse since he retired at the end of February 2018, he became very sedentary and quite depressed. His mood is finally starting to be stabilized on a combination of Remeron extended release and Xanax. He does attest that he spends most of his time in his recliner, very sedentary. He has been short of breath at least since mid June and had coughing that turned productive green at some point in time, but the cough has been going on for a month. Two days ago he had pain in his right flank that he attributed to shoveling snow, but yesterday it progressed and he was screaming in pain. He went to urgent care, they did a CT of chest, abdomen, and pelvis with the impression of likely pneumonia in the posterior right lower lobe and a right inguinal hernia, no strangulation. He was given azithromycin. He woke up at 2 a.m. still in excruciating pain and presented to the [facility] Emergency Room. He was found to have bilateral pulmonary embolisms on a CT chest angiogram and likely right lower lobe and right upper lobe pulmonary infarction. He was started on Lovenox 1 mg/kg, 750 mg of Levaquin and was referred to the hospitalist service for admission. He still has a significant amount of pain returning after the morphine [address] also was concerning for some right heart strain. He denies any fevers, chills, or any leg swelling or leg pain. His most recent flight was at end of February to [place] by way of [place]. No long car rides. He has lost about 10 pounds in the last 2 months with the loss of appetite. No night sweats. He has had 3 colonoscopies, the last was clear. He is on a 10-year followup plan. Denies any burning with urination or dysuria. PAST MEDICAL HISTORY: 1. Hypertension. 2. Hyperlipidemia. 3. Anxiety. 4. Depression. 5. GERD. 6. Restless leg syndrome. 7. Some diastolic dysfunction on an echo in August 2016. PAST SURGICAL HISTORY: Includes a left rotator cuff surgery in July 2015 and appendectomy in October 2014. MEDICATIONS: Include: 1. Flomax 0.5 mg daily. 2. Enalapril 10 mg p.o. b.i.d. 3. Remeron 7.5 mg p.o. q.h.s. 4. He just got azithromycin 250 mg daily yesterday. 5. Crestor 20 mg daily. 6. Lyrica 200 mg p.o. q.h.s. for restless legs. 7. Xanax extended release 1 mg p.o. daily. ALLERGIES: No known drug allergies. FAMILY HISTORY: His father of dementia at age 69, he was also a smoker. Mom of motor vehicle accident at age 42. His younger and older brothers are both healthy and a younger sister with severe diabetes, complications of amputated limbs. SOCIAL HISTORY: He is a never smoker. A former "functional" alcoholic), last drink was October 2017. No drug use. 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 He desires to be a full code. His medical surrogate is his at bedside, Kervin Tovar. REVIEW OF SYSTEMS: A 14-point review of systems is negative except as per HPI. He did attest to some constipation, had a saline laxative yesterday with some success. PHYSICAL EXAMINATION GENERAL APPEARANCE: No acute distress. VITAL SIGNS: Temperature 98.6, heart rate 87, respiratory rate 24, satting 93% on 3 L, and blood pressure 130/81. HEENT: Normocephalic, atraumatic. Pupils are equal, round, and reactive to light. Extraocular motions are intact. No scleral icterus. Moist mucous membranes. NECK: Supple. No cervical lymphadenopathy. LUNGS: Clear to auscultation bilaterally with no wheezes, rales, or rhonchi. CARDIOVASCULAR: Regular rate and rhythm. No murmurs, rubs, or gallops. ABDOMEN: Soft. Some right upper quadrant tenderness. No rebound. No guarding. EXTREMITIES: Warm, well perfused. No peripheral edema. NEUROLOGIC: Cranial nerves II through XII intact. Moving all extremities. SKIN: No lesions. No rashes. LABORATORY DATA: White count 9.0, hemoglobin 13.1, hematocrit 39, platelets 264,000. INR 1.08. Sodium 136, potassium 3.8, chloride 111, carbon dioxide 19 , BUN 13, creatinine 0.93, glucose 138, lactic acid 0.7, AST 39, ALT 46. Troponin 0.00. CRP 117, albumin 3.9. Influenza A and B negative. IMAGING: Chest x-ray with impression of consolidation involving the basilar segments of the right lower lobe, may represent atelectasis or pulmonary infarct given the presence of pulmonary embolism documented in CT, small right pleural effusion. CTA of chest, impression: 1. Extensive bilateral pulmonary embolism (more specifically in the left upper lobe, left lower lobe, right upper lobe, right lower lobe, and the right middle lobe at the segmental level). 2. Heart strain. 3. Subsegmental atelectasis and/or infiltrates in the lower lobes bilaterally. The possibility of right lower lobe and right upper lobe pulmonary infarctions would be a consideration. EKG demonstrated normal sinus rhythm. T-wave in III. No ST elevations or depressions. ASSESSMENT AND PLAN: Paras Tovar is a 63-year-old male with past medical history of hypertension, hyperlipidemia, anxiety, depression, gastroesophageal reflux disease, and restless leg syndrome with sedentary lifestyle for the last 5 months presenting with acute right flank pain, subacute shortness of breath, and evidence of bilateral segmental pulmonary embolisms with some evidence of right heart strain on CTA. He is status post Lovenox, we will continue that 1 mg/kg, though likely transition to Xarelto or Eliquis later today if hemodynamically stable. I added a troponin which was negative. BNP is pending. We will get an echocardiogram to further assess his potential right heart strain and get duplex lower extremity Dopplers bilaterally. This is likely a provoked event given his extreme sedentary lifestyle over the last 5 months, but does have some weight loss and further considerations for a malignancy workup could be entertained. We will try to obtain records of the last colonoscopy. We will continue his home meds of Xanax extended release 1 mg daily, Lyrica 200 mg at night for restless legs, Crestor 20 mg. I am holding his home enalapril as he is currently normotensive and has pulmonary embolism. Will continue his Remeron 7.5 mg for his anxiety and depression, and continue Flomax as well. He will continue the heart healthy diet. His medical surrogate is his , Kervin Tovar. He is a full code. He is being admitted to observation status. [id number]/[facility] #: [id number] SVETA
--- NOTE | 2018-07-31 11:15 | ECHO ---
Patient: RHONDA CAI [facility] Rec#: [id number] : 1955 Date: 07/31/2018 Age: 63y Height: 180.34 cm / 71.0 in Weight: 80.74 kg / 178.0 lbs Sex: M BSA: 2.01 Room#: ED 4 Admit Date#: 07/31/2018 Type: Inpatient Referring: Nicho Maynard Reading: Jorje Ware MD Insulation Batting Machine Operator: Remedios Walters,NADEENCS,RDMS CC: Gokul Mcginnis MD Transthoracic Echocardiogram Indication: PE BP: 120/72 HR: 67 Rhythm: NSR Findings History: HTN, HLD Technical Comments: The study quality is fair. Left Ventricle: The left ventricular chamber size is normal. Mild concentric left ventricular hypertrophy is observed. Global left ventricular wall motion and contractility are within normal limits. There is normal left ventricular systolic function. The estimated ejection fraction is 55-60%. There is no consistent Doppler evidence of clinically significant diastolic dysfunction. Left Atrium: The left atrial chamber size is normal. Right Ventricle: The right ventricle is mildly dilated. The right ventricular global systolic function is normal. Right Atrium: The right atrial cavity size is normal. Aortic Valve: The aortic valve is trileaflet. The aortic valve leaflets are mildly thickened. Systolic excursion of the aortic valve is normal. There is aortic annular calcification. There is no evidence of aortic regurgitation. There is no evidence of aortic stenosis. Mitral Valve: The mitral valve leaflets are mildly thickened. There is a trace of mitral regurgitation. There is no evidence of mitral stenosis. Tricuspid Valve: The tricuspid valve leaflets are normal. There is trace to mild tricuspid regurgitation. No pulmonary hypertension is noted. Pulmonic Valve: There is no evidence of pulmonic valve thickening. There is no evidence of pulmonic regurgitation. Pericardium: There is no significant pericardial effusion. Aorta: The aortic root appears normal. There is no dilatation of the aortic arch. Pulmonary Artery: The main pulmonary artery is not well visualized. Venous: The inferior vena cava appears normal in size. There is a greater than 50% respiratory change in the inferior vena cava dimension. Summary: There are no significant changes when compared to the previous study done on 09/14/16 Conclusions Mild concentric left ventricular hypertrophy is observed. Global left ventricular wall motion and contractility are within normal limits. There is normal left ventricular systolic function. The estimated ejection fraction is 55-60%. The right ventricular global systolic function is normal. The aortic valve leaflets are mildly thickened. There is no evidence of aortic stenosis. There is a trace of mitral regurgitation. There is trace to mild tricuspid regurgitation. There is no significant pericardial effusion. There are no significant changes when compared to the previous study done on 09/14/16 Measurements Name Value Normal Range RVIDd (AP) 2D 3.1 cm (0.9 - 2.6) RVDdMajor (2D) 2.9 cm (2.2 - 4.4) RAd ISD 4CH 4.5 cm (3.4 - 4.9) RA (A4C)W 3.3 cm (2.9 - 4.6) IVSd (2D) 1.1 cm (0.6 - 1) LVPWd (2D) 1.1 cm (0.6 - 1) LVIDd (2D) 3.8 cm (3.6 - 5.4) LVIDs (2D) 3.1 cm - LV FS (2D) 20 % (25 - 45) Aortic Annulus 2 cm (1.4 - 2.6) Ao root diameter (2D) 3 cm (2.1 - 3.5) Ascending Ao 3 cm (2.1 - 3.4) Aortic arch 3 cm (1.8 - 3.4) LA dimension (AP) 2D 3.8 cm (2.3 - 3.8) LAd ISD 4CH 5.3 cm (2.9 - 5.3) LA ISD 4CH W 4.2 cm (2.5 - 4.5) Name Value Normal Range LA ESV SP 4CH (A/L) 46.11 ml - LA ESV SP 2CH (A/L) 47.79 ml - LA ESV BP (A/L) 47.51 ml - LA ESV BP (A/L) index 24 ml/m2 - LA ESV SP 4CH (MOD) 43.47 ml - LA ESV SP 2CH (MOD) 44.88 ml - Name Value Normal Range MV E-wave Vmax 0.7 m/sec - MV deceleration time 256 msec - MV A-wave Vmax 0.8 m/sec - MV E:A ratio 0.9 ratio - P. vein S-wave Vmax 0.5 m/sec - P. vein D-wave Vmax 0.4 m/sec - P. vein S:D Vmax ratio 1.3 ratio - P. vein A-wave duration 111 msec - LV septal e' Vmax 0.07 m/sec - LV lateral e' Vmax 0.08 m/sec - LV E:e' septal ratio 10 ratio - LV E:e' lateral ratio 8 ratio - Name Value Normal Range AV Vmax 1.6 m/sec - AV VTI 33 cm - AV peak gradient 10 mmHg - AV mean gradient 6.5 mmHg - LVOT Vmax 1.5 m/sec - LVOT VTI 29 cm - LVOT peak gradient 9 mmHg - LVOT mean gradient 4.1 mmHg - JAMES Vmax 0.9 m/sec - Name Value Normal Range TR Vmax 2.5 m/sec - TR peak gradient 25 mmHg - RAP 3 mmHg - RVSP 28 mmHg - IVC diameter 1.8 cm - Name Value Normal Range PV Vmax 0.6 m/sec - PV peak gradient 1.4 mmHg -
[2018-07-31] MEDS ORDERED: NS 0.9% 1000 ML** 1,000 ML IV ONE (11:55)
[2018-07-31] MEDS: Rivaroxaban TAB(*) 15 MG PO SCH (18:32)
[2018-07-31] MEDS: Mirtazapine TAB* 15 MG PO SCH (20:22)
[2018-07-31] MEDS ORDERED: oxyCODONE TAB* 5 MG TAB PO PRN (20:34)
[2018-07-31] MEDS: Acetaminophen TAB* 325 MG PO PRN (23:46)
[2018-08-01] MEDS: Acetaminophen TAB* 325 MG PO PRN ×2 (07:24→15:22)
[2018-08-01] MEDS: Pregabalin CAP(*) 100 MG PO SCH (07:24)
[2018-08-01] MEDS: Tamsulosin CAP* 0.4 MG PO SCH (07:25)
[2018-08-01] MEDS: Atorvastatin* 40 MG TAB PO SCH (07:25)
[2018-08-01] MEDS: ALPRAZolam TAB* 0.5 MG PO SCH ×2 (07:25→20:07)
[2018-08-01] MEDS: Rivaroxaban TAB(*) 15 MG PO SCH ×2 (07:25→20:07)
[2018-08-01 08:24] LABS: ABS Basophils 0.1 10^3/ul (0-0.2); ABS Eosinophils 0.5 10^3/ul (0-0.6); ABS Lymphocytes 1.5 10^3/ul (1.0-4.8); ABS Monocytes 0.7 10^3/ul (0-0.8); ABS Neutrophils 5.6 10^3/ul (1.5-7.7); ABS Nucleated RBC 0 10^3/ul; Hematocrit 36 % (42-52); Lymphocyte % 17.6 %; Mean Corpuscular HGB Conc 33 g/dl (31-36); Mean Corpuscular Hemoglobin 32 pg (27-31); Mean Corpuscular Volume 97 fL (80-94); Mean Platelet Volume 8.7 fL (7.4-10.4); Nucleated Red Blood Cells % 0.1; Platelet Count 260 10^3/ul (150-450); Red Blood Count 3.75 10^6/ul (4.00-5.40); Red Cell Distribution Width 13 % (10.5-15); White Blood Count 8.3 10^3/ul (3.5-10.8)
[2018-08-01 08:38] LABS: BUN/Creatinine Ratio 10.3 (8-20); Calcium 8.4 mg/dL (8.6-10.3); EGFR African American 94.3 (>60); EGFR Non-African American 77.9 (>60); Potassium 4.1 mmol/L (3.5-5.0)
[2018-08-01 11:03] LABS: Urine Appearance Clear; Urine Bacteria Absent (Absent); Urine Bilirubin Negative (Negative); Urine Blood 2+ (Negative); Urine Color Straw; Urine Glucose Negative (Negative); Urine Ketones Negative (Negative); Urine Nitrite Negative (Negative); Urine Protein Negative (Negative); Urine Red Blood Cell Trace(0-2/hpf) (Absent); Urine Specific Gravity 1.006 (1.010-1.030); Urine Urobilinogen Negative (Negative); Urine White Blood Cell Absent (Absent)
[2018-08-01] MEDS ORDERED: NS 0.9% 500 ML* 500 ML IV ONE (14:24)
--- NOTE | 2018-08-01 18:48 | PN ---
Subjective Date of Service: 08/01/18 Interval History: Slept very poorly. Pain in flank is improved. Walked on/off oxygen, found to be 88% on RA with ambulation( earlier in AM had been 87% at rest when nasal cannula had been off face). coughing had fever last night Tmax 102.1 resolved with tylenol. Objective Active Medications: Acetaminophen (Tylenol Tab*) 650 mg PO Q6H PRN PRN Reason: PAIN Last Admin: 08/01/18 15:22 Dose: 650 mg Alprazolam (Xanax Tab*) 0.5 mg PO BID [facility] Last Admin: 08/01/18 07:25 Dose: 0.5 mg Atorvastatin Calcium (Lipitor*) 40 mg PO DAILY [facility] Last Admin: 08/01/18 07:25 Dose: 40 mg Mirtazapine (Remeron Tab*) 7.5 mg PO BEDTIME [facility] Last Admin: 07/31/18 20:22 Dose: 7.5 mg Morphine Sulfate (Morphine Vial*) 2 mg IV Q2H PRN PRN Reason: PAIN Last Admin: 07/31/18 23:47 Dose: 2 mg Oxycodone HCl (Roxycodone Tab*) 10 mg PO Q8H PRN PRN Reason: PAIN Pregabalin (Lyrica Cap(*)) 200 mg PO DAILY [facility] Last Admin: 08/01/18 07:24 Dose: 200 mg Rivaroxaban (Xarelto(*)) 15 mg PO Q12H [facility] Last Admin: 08/01/18 07:25 Dose: 15 mg Tamsulosin HCl (Flomax Cap*) 0.4 mg PO DAILY [facility] Last Admin: 08/01/18 07:25 Dose: 0.4 mg Vital Signs - 8 hr 08/01/18 08/01/18 08/01/18 11:23 14:18 15:05 Temperature 98.6 F 98.0 F Pulse Rate 71 84 Respiratory 18 16 Rate Blood Pressure 97/57 109/58 (mmHg) O2 Sat by Pulse 96 88 97 Oximetry Oxygen Devices in Use Now: Nasal Cannula Appearance: NAD but fatigued Eyes: No Scleral Icterus Ears/Nose/Mouth/Throat: NL Teeth, Lips, Gums Respiratory: Symmetrical Chest Expansion and Respiratory Effort, Clear to Auscultation Cardiovascular: NL Sounds; No Murmurs; No JVD, RRR Extremities: No Edema Skin: No Rash or Ulcers, No Nodules or Sclerosis Neurological: Alert and Oriented x 3, NL Sensation Nutrition: Taking PO's Result Diagrams: 08/01/18 08:12 08/01/18 08:12 Additional Lab and Data: Laboratory Results - last 24 hr 08/01/18 08/01/18 08/01/18 08:12 08:12 10:30 WBC 8.3 RBC 3.75 L Hgb 12.0 L Hct 36 L MCV 97 H MCH 32 H MCHC 33 RDW 13 Plt Count 260 MPV 8.7 Neut % (Auto) 67.5 Lymph % (Auto) 17.6 [place] % (Auto) 8.3 Eos % (Auto) 6.0 Baso % (Auto) 0.6 Absolute Neuts (auto) 5.6 Absolute Lymphs (auto) 1.5 Absolute Monos (auto) 0.7 Absolute Eos (auto) 0.5 Absolute Basos (auto) 0.1 Absolute Nucleated RBC 0 Nucleated RBC % 0.1 Sodium 136 Potassium 4.1 Chloride 108 Carbon Dioxide 23 Anion Gap 5 BUN 10 Creatinine 0.97 Est GFR ( Amer) 94.3 Est GFR (Non-Af Amer) 77.9 BUN/Creatinine Ratio 10.3 Glucose 105 H Calcium 8.4 L Urine Color Straw Urine Appearance Clear Urine pH 5.0 Ur Specific [place] 1.006 L Urine Protein Negative Urine Ketones Negative Urine Blood 2+ A Urine Nitrate Negative Urine Bilirubin Negative Urine Urobilinogen Negative Ur Leukocyte Esterase Negative Urine WBC (Auto) Absent Urine RBC (Auto) Trace(0-2/hpf) Urine Bacteria Absent Urine Glucose Negative Microbiology and Other Data: Microbiology 07/31/18 04:00 Blood Venous Aerobic Blood Culture - Preliminary No Growth Day 1 07/31/18 04:00 Blood Venous Anaerobic Blood Culture - Preliminary 07/31/18 04:00 Blood Venous Blood MRSA/MSSA (PCR) - Final Mrsa Negative S.aureus Negative 07/31/18 04:13 Blood Venous Aerobic Blood Culture - Preliminary No Growth Day 1 07/31/18 04:13 Blood Venous Anaerobic Blood Culture - Preliminary No Growth Day 1 07/31/18 03:45 Nasopharyngeal Influenza Types A,B Antigen - Final Specimen received for Influenza A/B Molecular testing Assess/Plan/Problems-Billing Assessment: 63 yo male PMH HTN, HLD,recent severe depression/anxiety with sedentary lifestyle following longterm in February presenting with several weeks of SOB, productive cough then acute right flank pain. Found to have bilateral PE. No right heart strain on ECHO, troponin and BNP negative but CT angio and Duplex doppler indicate concern for right heart strain. Initial Duplex nondiagnostic. Slowly improving, currently on Xarelto. - Patient Problems (1) Pulmonary embolism and infarction Current Visit: Yes Status: Acute Code(s): I26.99 - OTHER PULMONARY EMBOLISM WITHOUT ACUTE COR PULMONALE SNOMED Code(s): 5205299893967 Comment: s/p lovenox in ED. Continue Xarelto. wean O2 as able. evidence of possible pulmonary infarction The initial duplex doppler was not diagnostic as no compression used? Will repeat study. Did have diffusely low flow state. (2) Acute respiratory failure with hypoxia Current Visit: Yes Status: Acute Code(s): J96.01 - ACUTE RESPIRATORY FAILURE WITH HYPOXIA SNOMED Code(s): 15181689 Comment: Likely secondary to bilateral PE. Did get a dose of azithromycin day prior to admission and dose of levaquin 750mg in ED. Spiked fever night of admission to 102. CRP is elevated 117. Difficult to exclude pneumonia given imaging findings. Given new fever, productive cough and continued hypoxia will restart levaquin at 750mg po daily. (3) Depression Current Visit: Yes Status: Acute Code(s): F32.9 - MAJOR DEPRESSIVE DISORDER , SINGLE EPISODE, UNSPECIFIED SNOMED Code(s): 20301925 Comment: continue remeron 7.5mg and ativan 0.5mg po BID anxiety. (4) HTN (hypertension) Current Visit: Yes Status: Acute Code(s): I10 - ESSENTIAL (PRIMARY) HYPERTENSION SNOMED Code(s): 93581876 Comment: holding home vasotec in setting of PE with intermittent hypotension requiring IVF bolus. conflicting evidence for and against right heart strain. (5) HLD (hyperlipidemia) Current Visit: Yes Status: Acute Code(s): E78.5 - HYPERLIPIDEMIA, UNSPECIFIED SNOMED Code(s): 18566727 Comment: continue statin. (6) Fever Current Visit: Yes Status: Acute Code(s): R50.9 - FEVER, UNSPECIFIED SNOMED Code(s): 483733154 Comment: difficult to exclude pna based on CXR/CTA. Could just be from PE/ lung infarction. f/u Cultures. Given prolonged SOB and cough symptoms predating the acute back pain, return of fever, and elevated CRP will restart levaquin empirically. Status and Disposition: medicine changed to inpatient for continued hypoxic respiratory failure. Potential d/c in next 24-48 hours.
[2018-08-01] MEDS ORDERED: Levofloxacin TAB* 750 MG PO SCH (20:00)
[2018-08-01] MEDS: Mirtazapine TAB* 15 MG PO SCH (20:07)
[2018-08-02] MEDS: Acetaminophen TAB* 325 MG PO PRN ×2 (00:04→09:42)
[2018-08-02] MEDS ORDERED: Calcium Carbonate CHEW TAB* 500 MG (TUMS) PO PRN (00:30)
[2018-08-02] MEDS: Pregabalin CAP(*) 100 MG PO SCH (08:21)
[2018-08-02] MEDS: Rivaroxaban TAB(*) 15 MG PO SCH (08:21)
[2018-08-02] MEDS: Atorvastatin* 40 MG TAB PO SCH (08:21)
[2018-08-02] MEDS: Tamsulosin CAP* 0.4 MG PO SCH (08:21)
[2018-08-02] MEDS: ALPRAZolam TAB* 0.5 MG PO SCH (08:22)
[2018-08-02] MEDS: Morphine VIAL* 4 MG/ML VIAL (1 ml vial) IV PRN (08:32)
[2018-08-02] MEDS ORDERED: Polyethylene Glycol 3350* 17 GM PACKET PO SCH (10:00)
[2018-08-02] MEDS ORDERED: Polyethylene Glycol 3350* 17 GM PACKET ONE (10:14)
[2018-08-02] MEDS ORDERED: Polyethylene Glycol 3350* 17 GM PACKET PO PRN (10:19)
[2018-08-02 12:04] VITALS: BP 115/67
--- NOTE | 2018-08-02 15:01 | DS ---
CC: Dr. Gokul Mcginnis DISCHARGE SUMMARY: DATE OF ADMISSION: 07/31/18 DATE OF DISCHARGE: 08/02/18 PRIMARY CARE PHYSICIAN: Dr. Gokul Mcginnis. DISPOSITION: Home. CONDITION: Good. PRIMARY DIAGNOSIS: Pulmonary embolism. SECONDARY DIAGNOSES: 1. Pneumonia. 2. Hypertension. PERTINENT PROCEDURES: CTA of chest showing extensive bilateral pulmonary emboli with concern for heart strain, also subsegmental atelectasis or infiltrate in lower lobes bilaterally with the possibility of R lower and upper lobe infarctions. Transthoracic echocardiogram showing mild concentric LVH with global LV wall motion and contractility within normal limits. EF 55% to 60%. Right ventricular global systolic function is normal. Trace mitral regurgitation, trace to mild tricuspid regurgitation. Lower extremity Dopplers were concerning for DVT in right popliteal vein, although compression not performed, so study is not definitive. 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 He has been spending a lot of time in his recliner chair. For the last 3 weeks, he has experienced cough productive of green sputum. Two days prior to admission, he started experiencing right flank pain. One day before admission, he was in screaming pain and went to an urgent care, with CT chest concerning for pneumonia of the posterior right and lower lobe, so he was given azithromycin. On the day of presentation to [facility], he had recurrence of excruciating pain so came to hospital. Chest CTA showed bilateral pulmonary embolisms. On 07/31 he was started on Lovenox and Levaquin and admitted to medicine. HOSPITAL COURSE: Pt was switched from Lovenox to Xarelto on 07/31. He was able to ambulate initially with O2 requirements to maintain 88% oxygenation. By 12/14, day of discharge, he was able to ambulate off oxygen without desaturating and felt ready to go home. He was afebrile for over 24 hours before discharge with improvement in cough and dyspnea. Otherwise 10-point ROS negative. PHYSICAL EXAMINATION: Vitals: Afebrile, heart rate 77, respiratory rate 12, oxygen saturation 95% on room air, blood pressure 115/67 Gen: Well-appearing male, sitting up in bed, talking to in full sentences. Neck: No lymphadenopathy. Lungs: Clear to auscultation bilaterally. Cards: Regular rate and rhythm. No murmurs, gallops, or rubs. Abdomen: Soft, nontender. Back: No CVA tenderness. Extremities: Warm, well perfused. No edema. DISCHARGE PLAN: He will follow up with his primary care physician within 1 to 2 weeks. His blood pressure should be monitored closely as his antihypertensives were held throughout admission given low BP. He was switched from Levaquin to cefpodoxime to complete a 7 day total course for community acquired pneumonia, with completion of azithromycin 5-day course as well. He should remain on anticoagulation for at least 3 months. MEDICATIONS ON DISCHARGE: 1. Rivaroxaban 15 mg twice a day to complete a 21-day course, starting on 07/31, then he should switch to 20 mg daily. 2. Cefpodoxime 200 mg twice a day for 5 days 3. Azithromycin 250 mg daily for 4 days. 4. Alprazolam 1 mg daily. 5. Pregabalin 200 mg daily. 6. Rosuvastatin 20 mg daily. 7. Mirtazapine 7.5 mg daily. 8. Tamsulosin 0.4 mg daily. 9. Miralax prn DISCHARGE INSTRUCTIONS: The patient can resume healthy diet and activity level. The patient was educated to return to hospital if he experiences return of fevers, lightheadedness, or shortness of breath. TIME SPENT: Time spent on discharge 50 minutes, more than half of which spent at bedside for interview and exam. [id number]/[facility] #: [id number] MTDD
== END 2018-08-02 14:45 | disposition home or self-care (01) | DRG 134 ==
LOC: ED 03:25 → MED 07:36 → OBSVTOIN 16:22
PROVIDERS: ADMIT Internal Medicine; ATTEND Internal Medicine
DX: I26.99 Other pulmonary embolism without acute cor pulmonale (principal); J96.01 Acute respiratory failure with hypoxia; J15.29 Pneumonia due to other staphylococcus; I50.30 Unspecified diastolic (congestive) heart failure; J98.11 Atelectasis; I11.0 Hypertensive heart disease with heart failure; F32.9 Major depressive disorder, single episode, unspecified; F41.9 Anxiety disorder, unspecified; E78.5 Hyperlipidemia, unspecified; K21.9 Gastro-esophageal reflux disease without esophagitis; R50.9 Fever, unspecified; G25.81 Restless legs syndrome; F10.21 Alcohol dependence, in remission; Z79.899 Other long term (current) drug therapy; Z83.3 Family history of diabetes mellitus; Z81.2 Family history of tobacco abuse and dependence; Z84.89 Family history of other specified conditions
CPT/HCPCS: 36415; 71045; 71275; 80048; 80053; 81003; 81015; 83036; 83605; 83880; 84484; 85025; 85610; 85730; 86140; 87040; 87077; 87150; 87205; 93005; 93306; 93970; 99285; A9270-GY; J1650; J1885; J2270; J2405; Q9967

== ENCOUNTER 2019-01-02 12:29 | Inpatient (IN) | payer BC, OTHER ==
--- NOTE | 2019-01-02 12:57 | ED ---
Psychiatric Complaint - HPI Summary HPI Summary: This pt is a 63 Y/O M presenting to [facility] accompanied by his with a CC of SI. He stated that the ideations started 2 weeks ago and was prescribed Xanax but stated that it hasnt worked. He stated that he started looking up ways to commit suicide on the internet and called the suicide hotline. He denies any auditory and visual hallucinations. He stated that he recently had a medication added to his list and is currently on his 41st day of Cetirizine. He states that he doesnt have any HI and denies any fevers, SOB, CP, chills, abdominal pain, N/V, and headaches. He stated that he has been feeling increasingly anxious and depressed. He has a PMHx of depression and anxiety. - History Of Current Complaint Chief Complaint: [facility]MentalHealth Time Seen by Provider: 01/02/19 12:40 Hx Obtained From: Patient Onset/Duration: Gradual Onset, Lasting Weeks - 2 weeks, Still Present, Worse Since - today Timing: Constant Severity Initially: Moderate Severity Currently: Severe Character: Depressed, Anxious Aggravating Factor(s): Nothing Alleviating Factor(s): Nothing Associated Signs And Symptoms: Positive: Negative - fevers, SOB, CP, chills, abdominal pain, N/V, and headaches. Auditory and visual hallucinations, HI Has Suicidal: Reports: Thoughts. Denies: With A Plan Has Homicidal: Denies: Thoughts, With A Plan - Allergies/Home Medications Allergies/Adverse Reactions: Allergies Allergy/AdvReac Type Severity Reaction Status Date / Time No Known Allergies Allergy Verified 07/30/18 21:03 PMH/Surg Hx/FS Hx/Imm Hx Previously Healthy: Yes Endocrine/Hematology History: Denies: Hx Anticoagulant Therapy, Hx Blood Disorders, Hx Diabetes, Hx Unexplained Bleeding Cardiovascular History: Reports: Hx Hypercholesterolemia, Hx Hypertension - ON MEDS Denies: Hx Congestive Heart Failure, Hx Pacemaker/ICD History: Denies: Hx Renal Disease Sensory History: Reports: Hx Contacts or Glasses Denies: Hx Hearing Aid Opthamlomology History: Reports: Hx Contacts or Glasses Psychiatric History: Reports: Hx Anxiety, Hx Depression, Hx Panic Disorder, Other Psychiatric Issues/Disorders - Panic attacks - Surgical History Surgical History: Yes Surgery Procedure, Year, and Place: Tonsilectomy 3 years old. Vasectomy 1994. 11/22/2014 - lap appy. LEFT SHOULDER ROTATOR CUFF REPAIR 07/2015 Hx Anesthesia Reactions: No - Immunization History Immunizations Up to Date: Yes Infectious Disease History: No Infectious Disease History: Denies: Hx of Known/Suspected MRSA, Traveled Outside the [place] in Last 30 Days - Family History Known Family History: Positive: Hypertension, Other - dementia - Social History Occupation: Retired Lives: With Family Alcohol Use: None Alcohol Amount: quit September 2017 Hx Substance Use: No Substance Use Type: Reports: None Hx Tobacco Use: No Smoking Status (MU): Never Smoked Tobacco Household Exposure: No Review of Systems Negative: Fever, Chills Negative: Chest Pain Negative: Shortness Of Breath Negative: Abdominal Pain, Vomiting, Nausea Negative: Headache Psychological: Other - NEGATIVE: HI Positive: Anxious, Depressed, Other - POSITIVE: SI All Other Systems Reviewed And Are Negative: Yes Physical Exam Triage Information Reviewed: Yes Vital Signs On Initial Exam: Initial Vitals Temp Pulse Resp BP Pulse Ox 98.1 F 82 14 123/81 96 01/02/19 12:33 01/02/19 12:33 01/02/19 12:33 01/02/19 12:33 01/02/19 12:33 Vital Signs Reviewed: Yes Diagnostics - Vital Signs Vital Signs Temp Pulse Resp BP Pulse Ox 01/02/19 12:33 98.1 F 82 14 123/81 96 - Laboratory Result Diagrams: 01/02/19 13:03 01/02/19 13:03 Lab Statement: Any lab studies that have been ordered have been reviewed, and results considered in the medical decision making process. Course/Dx - Course Course Of Treatment: This pt is a 63 Y/O M [facility] accompanied by his with a CC of SI. He stated that the ideations started 2 weeks ago and was prescribed Xanax but stated that it hasnt worked. He stated that he started looking up ways to commit suicide on the internet and called the suicide hotline. Pt was moved to [place] room 22. Dr. Colvin, psychiatrist, admits the [facility] with a Dx of unspecified depression. It is voluntary. - Differential Dx/Clinical Impression Provider Diagnosis: Depression - Physician Notifications Discussed Care Of Patient With: Nicolas Colvin Time Discussed With Above Provider: 14:08 Instructed by Provider To: Admit As Inpatient - voluntary Admit/Transition Orders Completed By ED Provider: Yes Discharge - Sign-Out/Discharge Documenting (check all that apply): Patient Departure - admitted, voluntary - Discharge Plan Condition: Stable Disposition: PSYCHIATRIC FACILITY-[facility] - Billing Disposition and Condition Condition: STABLE Disposition: Psychiatric Facility [facility] - Attestation Statements Document Initiated by Elkinibe: Yes Documenting Scribe: Triston Thomas Provider For Whom Elkinibtato is Documenting (Include Credential): Javi Cortez MD Scribe Attestation: Triston Cordova, scribed for Javi Cortez MD on 01/02/19 at 1820. Scribe Documentation Reviewed: Yes Provider Attestation: The documentation as recorded by the Triston birch accurately reflects the service I personally performed and the decisions made by , Javi Cortez MD Status of Scribe Document: Viewed
[2019-01-02 13:13] LABS: ABS Basophils 0.1 10^3/ul (0-0.2); ABS Eosinophils 0.2 10^3/ul (0-0.6); ABS Monocytes 0.6 10^3/ul (0-0.8); ABS Neutrophils 6.4 10^3/ul (1.5-7.7); Eosinophil % 2.2 %; Hematocrit 47 % (42-52); Hemoglobin 16.3 g/dL (14.0-18.0); Lymphocyte % 21.2 %; Mean Corpuscular HGB Conc 34 g/dL (31-36); Mean Corpuscular Hemoglobin 33 pg (27-31); Mean Corpuscular Volume 94 fL (80-94); Mean Platelet Volume 8.7 fL (7.4-10.4); Nucleated Red Blood Cells % 0.1; Platelet Count 310 10^3/uL (150-450); Red Blood Count 5.02 10^6 /uL (4.18-5.48); Red Cell Distribution Width 14 % (10-15); White Blood Count 9.2 10^3/uL (3.5-10.8)
[2019-01-02 13:23] LABS: Urine Appearance Clear; Urine Bacteria Absent (Absent); Urine Bilirubin Negative (Negative); Urine Blood 1+ (Negative); Urine Color Yellow; Urine Glucose 1+(50 mg/dL) (Negative); Urine Ketones Negative (Negative); Urine Nitrite Negative (Negative); Urine Protein Negative (Negative); Urine Red Blood Cell 1+(3-5/hpf) (Absent); Urine Specific Gravity 1.025 (1.010-1.030); Urine Squamous Epithelial Cell Present (Absent); Urine Urobilinogen Negative (Negative); Urine White Blood Cell Trace(0-5/hpf) (Absent)
[2019-01-02 13:28] LABS: ALT 38 U/L (7-52); AST 26 U/L (13-39); Albumin 4.6 g/dL (3.2-5.2); Albumin/Globulin Ratio 1.5 (1-3); Alkaline Phosphatase 85 U/L (34-104); Anion Gap 6 mmol/L (2-11); BUN/Creatinine Ratio 12.9 (8-20); Blood Urea Nitrogen 12 mg/dL (6-24); CO2 Carbon Dioxide 25 mmol/L (22-32); Calcium 9.6 mg/dL (8.6-10.3); Chloride 110 mmol/L (101-111); EGFR Non-African American 81.8 (>60); Glucose 112 mg/dL (70-100); Potassium 4.1 mmol/L (3.5-5.0); Sodium 141 mmol/L (135-145); Total Protein 7.6 g/dL (6.4-8.9)
[2019-01-02 13:28] LABS: Urine Benzodiazepine Screen Presumptive Positive (None Detect); Urine Opiates Screen None Detected (None Detect)
[2019-01-02 13:48] LABS: Acetaminophen < 15 mcg/mL; Alcohol < 10 mg/dL (<10); Salicylate < 2.50 mg/dL (<30)
[2019-01-02 14:02] LABS: TSH (Thyroid Stimulating Horm) 3.15 mcIU/mL (0.34-5.60)
[2019-01-02] MEDS ORDERED: Acetaminophen TAB* 325 MG PO PRN (14:22)
[2019-01-02] MEDS ORDERED: Al Hydrox/Mg Hydrox/Simet LIQ* 30 ML UDC PO PRN (14:22)
[2019-01-02] MEDS ORDERED: hydrOXYzine HCL TAB* 50 MG PO PRN (14:27)
[2019-01-02] MEDS: Atorvastatin* 40 MG TAB PO SCH (20:49)
[2019-01-02] MEDS: Mirtazapine TAB* 15 MG PO SCH (20:50)
[2019-01-02] MEDS: Pregabalin CAP(*) 100 MG PO SCH (20:50)
[2019-01-02] MEDS: Rivaroxaban TAB(*) 20 MG TAB PO SCH (20:51)
[2019-01-02] MEDS ORDERED: Pregabalin CAP(*) 100 MG PO SCH (21:00)
[2019-01-02] MEDS ORDERED: Mirtazapine TAB* 15 MG PO SCH (21:00)
[2019-01-03] MEDS: Tamsulosin CAP* 0.4 MG PO SCH (08:18)
[2019-01-03 08:39] LABS: HDL Cholesterol 49.5 mg/dL
[2019-01-03] MEDS ORDERED: Sertraline* 100 MG TAB PO SCH (09:00)
[2019-01-03] MEDS ORDERED: OLANzapine TAB* 2.5 MG PO ONE (10:29)
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
[2019-01-03] MEDS: Venlafaxine EXT RELEASE CAP* 37.5 MG PO SCH (10:52)
[2019-01-03] MEDS: Atorvastatin* 40 MG TAB PO SCH (20:57)
[2019-01-03] MEDS: Mirtazapine TAB* 15 MG PO SCH (20:58)
[2019-01-03] MEDS: Pregabalin CAP(*) 100 MG PO SCH (20:58)
[2019-01-03] MEDS: Rivaroxaban TAB(*) 20 MG TAB PO SCH (20:59)
[2019-01-04] MEDS: Tamsulosin CAP* 0.4 MG PO SCH (08:32)
[2019-01-04] MEDS: Venlafaxine EXT RELEASE CAP* 37.5 MG PO SCH (08:32)
[2019-01-04 08:42] VITALS: BP 130/76
[2019-01-04] MEDS ORDERED: Venlafaxine EXT RELEASE CAP* 37.5 MG PO ONE (11:25)
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
[2019-01-05] MEDS ORDERED: Venlafaxine EXT RELEASE CAP* 75 MG PO SCH (09:00)
== END 2019-01-04 16:13 | disposition home or self-care (01) | DRG 756 ==
LOC: ED 12:29 → BSU 14:08
PROVIDERS: ADMIT Psychiatry & Neurology Psychiatry; ATTEND Psychiatry & Neurology Psychiatry
DX: F41.0 Panic disorder [episodic paroxysmal anxiety] (principal); F32.2 Major depressive disorder, single episode, severe without psychotic features; R45.851 Suicidal ideations; E78.00 Pure hypercholesterolemia, unspecified; E78.5 Hyperlipidemia, unspecified; I10 Essential (primary) hypertension; K21.9 Gastro-esophageal reflux disease without esophagitis; G25.81 Restless legs syndrome; F90.9 Attention-deficit hyperactivity disorder, unspecified type; G47.30 Sleep apnea, unspecified; Z98.52 Vasectomy status; Z82.49 Family history of ischemic heart disease and other diseases of the circulatory system; Z82.0 Family history of epilepsy and other diseases of the nervous system; Z81.2 Family history of tobacco abuse and dependence; Z83.3 Family history of diabetes mellitus; Z81.8 Family history of other mental and behavioral disorders; Z81.1 Family history of alcohol abuse and dependence; Z86.711 Personal history of pulmonary embolism
CPT/HCPCS: 36415; 80053; 80061; 80307; 80320; 80329; 81003; 81015; 83036; 84443; 85025; 87086; 93005; 99222; 99238; 99285; A9270-GY; G0480

== ENCOUNTER 2019-02-18 21:09 | Emergency (ER) | payer OTHER ==
--- OUTSIDE RECORDS SUMMARY | 2019-02-18 21:15 | XMS REPORT | Continuity of Care Document ---
:1955 External Reference #:[id number] Author Name Gokul Mcginnis M.D. Address [address] [place] [address] Care Team Providers Name Role Phone [facility] - Care Team Information Senior Credit Analyst [phone] Gastroenterology Karlo Dennison MD - Dermatology Care Team Information Senior Credit Analyst [phone] Dr Jackson Alcaraz Care Team Information Senior Credit Analyst [phone] Problems Active Problems Provider Date Essential hypertension Onset: 02/01/2006 Pure hypercholesterolemia Maritza Barajas MD Onset: 08/01/2006 Benign prostatic hypertrophy without Maritza Barajas MD Onset: 08/01/2006 outflow obstruction Generalized anxiety disorder Maritza Barajas MD Onset: 08/01/2006 Gastroesophageal reflux disease Maritza Barajas MD Onset: 06/09/2008 Obstructive sleep apnea syndrome Maritza Barajas MD Onset: 09/18/2008 Allergic condition Lynne Mars RPA-C Onset: 09/24/2014 Restless legs Lynne Mars RPA-C Onset: 09/24/2014 Panic disorder with agoraphobia Gokul Mcginnis M.D. Onset: 04/24/2015 Vitamin D deficiency Gokul Mcginnis M.D. 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 Onset: 09/23/2015 disorder Recurrent major depressive episodes Albert Darden D.O. Onset: 11/04/2015 Impaired fasting glycaemia Gokul Mcginnis M.D. Onset: 12/28/2016 Social History Type Date Description Comments Sex Unknown Tobacco Use Start: Unknown Denies Cigarette Use ETOH Use 05/23/2017 Currently consumes alcohol recently "stopped all my drinking" and admits to having "a bit of a drinking problem". Prior to that would have ~3 drinks (1 drink= 1 beer or 1 bottle of hard cider) QOD, ~14 drinks/wk. He was never a much heavier drinkier. "I've been like this a very long time. I finally admitted it to Cassy and she's helping me get through this." Recreational Drug Use Former Drug User Tobacco Use Start: Unknown Patient has never smoked Allergies, Adverse Reactions, Alerts Description No Known Drug Allergies Medications Active Medications SIG Qnty Indications Ordering Provider Date Clonazepam 1/2 tablet 3x/day F41.1 Unknown 02/04/2019 0.5mg Tablets as needed for anxiety Venlafaxine HCL ER take one capsule F41.1 Unknown 01/21/2019 75mg by mouth every Caps ER 24HR morning for mood F33.9 Mirtazapine 1 tablet by mouth 180tabs F41.1 Gokul Mcginnis, 10/19/2018 15mg Tablets 2x/day; for mood M.D. and sleep F33.9 G47.00 Xarelto take 1 tablet by 90tabs Z86.711 Gokul Mcginnis, 08/06/2018 20mg Tablets mouth every evening M.D. with dinner starting on 08/21/18; for blood clots Lyrica take 1-2 capsules 180caps F41.1 Gokul Mcginnis, 08/06/2018 100mg Capsules by mouth before M.D. bed; for restless legs syndrome; code c G25.81 Rosuvastatin Calcium Take 1 Tablet Daily 90tabs E78.00 Gokul Mcginnis, 20mg For High M.D. Tablets Cholesterol Econazole Nitrate apply to affected Arieln, 07/04/2017 1% area in for rash and MD Karlo Cream itching once a day as needed Vitamin D take 1 capsule 13caps E55.9 Gokul Mcginnis, 09/23/2015 (Ergocalciferol) weekly for vitamin d M.D. deficiency 50629Feby Capsules Tamsulosin HCL Take 1 Capsule Daily 90caps N40.1 Gokul Mcginnis, 2010 0.4mg 30 Minutes After M.D. Capsules A Meal Ibuprofen 1 by mouth every 240tabs M75.82 Gokul Mcginnis, 08/26/2010 800mg Tablets 8-12 hours as needed M.D. for pain . take with food M25.512 Cpap 8 cm pressure G47.33 Gokul Mcginnis M.D. 08/31/2008 Hydrocortisone Valerate prn Unknown 0.2% Cream History Medications Clonazepam 1 tablet by mouth F41.1 Unknown 01/14/2019 - 0.5mg 2x/day, taper as 02/01/2019 Tablets directed; for anxiety Cipro 1 tab by mouth 14tabs Gokul Mcginnis, 11/21/2018 - 500mg Tablets twice a day x 7 M.D. 11/25/2018 days if needed for traveler's diarrhea Sertraline HCL Take 1/2 Tablet By F41.1 Unknown 11/13/2018 - Mouth Every 01/21/2019 100mg Tablets Morning For 5 Days, Then Take 1 Tablet By Mouth Every Morning F33.9 Mirtazapine 1/2 tablet by 45tabs F41.1 Gokul Mcginnis, 10/08/2018 - 15mg mouth in the M.D. 10/19/2018 Tablets morning, 1 tablet at night; for sleep and anxiety F33.9 G47.00 Enalapril Maleate take 1/2 tablet I10 Gokul Mcginnis, 10/05/2018 - 2x/day for high M.D. 10/19/2018 10mg Tablets blood pressure Hydroxyzine HCL take 1-2 tablets 30tabs F41.1 Gokul Mcginnis, 10/05/2018 - 25mg by mouth up to M.D. 10/08/2018 Tablets four times a day as needed for anxiety Mirtazapine 2 tablets by F41.1 Gokul Mcginnis, 09/22/2018 - 7.5mg mouth nightly at M.D. 10/08/2018 Tablets night for sleep and mood F33.9 G47.00 Clonazepam 1 tablet by mouth 45tabs F41.1 Gokul Mcginnis, 09/22/2018 - 0.5mg every 8 hours for M.D. 01/14/2019 Tablets anxiety (to replace alprazolam) Alprazolam ER 2 tabs by mouth 60tabs F41.1 Gokul Mcginnis, 08/29/2018 - 1mg every morning; for M.D. 09/22/2018 Tablets ER 24HR anxiety Escitalopram Oxalate 1 tablet by mouth 90tabs F41.1 Gokul Mcginnis, 08/10 - every day for mood M.D. 11/13/2018 10mg Tablets Medications Administered in Office Medication SIG Qnty Indications Ordering Provider Date injection, kenalog, 10 mg Lynne Mars RPA-C 03/02/2015 Injection SC/Im Injections Lynne Mars RPA-C 03/02/2015 Injection Immunizations CPT Code Status Date Vaccine Lot # [id number] Given 02/04/2019 Influenza Virus Vaccine, Quadrivalent, Split, Preservative Free 14342 Given 12/29/2017 Shingrix Zoster (Shingles) Vaccine (HZV) [id number] Recomb,Subnit,Adjuvanted 95197 Given 10/10/2017 Shingrix Zoster (Shingles) Vaccine (HZV) [id number] Recomb,Subnit,Adjuvanted U-Flu Given 03/02/2015 Influenza,Unspecified 21674 Given 07/15/2014 Zostavax [id number] 39065 Given 03/13/2013 Flu, Split Virus 3Yrs 87283 Given 03/09/2011 Flu, Split Virus 3Yrs 13627 Given 09/01/2009 Adacel or Boostrix, TDaP [id number] 08858 Given 05/29/1999 Td Immunization Vital Signs Date Vital Result Comment 02/04/2019 4:08pm BP Systolic 120 mmHg BP Diastolic 80 mmHg Weight 161.00 lb 01/22/2019 10:31am BP Systolic 108 mmHg BP Diastolic 66 mmHg BP Systolic Recheck 124 mmHg R arm sitting BP Diastolic Recheck 86 mmHg R arm sitting Weight 163.00 lb Results Test Date Facility Test Result H/L Range Note CBC Auto Diff 01/02/2019 [facility] White Blood 9.2 10^3/uL Normal 3.5-10.8 [phone] Count Red Blood Count 5.02 10^6/uL Normal 4.18-5.48 Hemoglobin 16.3 g/dL Normal 14.0-18.0 Hematocrit 47 % Normal 42-52 Mean Corpuscular Volume 94 fL Normal 80-94 Mean Corpuscular Hemoglobin 33 pg High 27-31 Mean Corpuscular HGB Conc 34 g/dL Normal 31-36 Red Cell Distribution Width 14 % Normal 10-15 Platelet Count 310 10^3/uL Normal 150-450 Mean Platelet Volume 8.7 fL Normal 7.4-10.4 Abs Neutrophils 6.4 10^3/uL Normal 1.5-7.7 Abs Lymphocytes 2.0 10^3/uL Normal 1.0-4.8 Abs Monocytes 0.6 10^3/uL Normal 0-0.8 Abs Eosinophils 0.2 10^3/uL Normal 0-0.6 Abs Basophils 0.1 10^3/uL Normal 0-0.2 Abs Nucleated RBC 0.0 10^3/uL Granulocyte % 69.0 % Lymphocyte % 21.2 % Monocyte % 6.5 % Eosinophil % 2.2 % Basophil % 1.1 % Nucleated Red Blood Cells % 0.1 Urine Drug 01/02/2019 [facility] Urine Amphetamine None Detected None Detect SCR ED & [phone] Screen Pain Clinic Urine Barbiturates Screen None Detected None Detect Urine Benzodiazepine Screen Presumptive Posi <SEE NOTE> Abnormal None Detect 1 Urine Cannabinoids Screen None Detected None Detect Urine Cocaine Screen None Detected None Detect Urine Opiates Screen None Detected None Detect Urine Phencyclidine Screen None Detected None Detect 2 Urinalysis Profile 01/02/2019 [facility] Urine Color Yellow [phone] Urine Appearance Clear Urine Specific [place] 1.025 Normal 1.010-1.030 Urine pH 5.0 Normal 5-9 Urine Urobilinogen Negative Negative Urine Ketones Negative Negative Urine Protein Negative Negative Urine Leukocytes Negative Negative Urine Blood 1+ Abnormal Negative Urine Nitrite Negative Negative Urine Bilirubin Negative Negative Urine Glucose 1+(50 mg/dL) Abnormal Negative Urine White Blood Cell Trace(0-5/hpf) Absent Urine Red Blood Cell 1+(3-5/hpf) Abnormal Absent Urine Bacteria Absent Absent Urine Squamous Epithelial Cell Present Abnormal Absent Urine Calcium Oxalate Cryst Present Abnormal Absent Comp Metabolic Panel 01/02/2019 [facility] Sodium 141 mmol/L Normal 135-145 [phone] Potassium 4.1 mmol/L Normal 3.5-5.0 Chloride 110 mmol/L Normal 101-111 Co2 Carbon Dioxide 25 mmol/L Normal 22-32 Anion Gap 6 mmol/L Normal 2-11 Glucose 112 mg/dL High 70-100 Blood Urea Nitrogen 12 mg/dL Normal 6-24 Creatinine 0.93 mg/dL Normal 0.67-1.17 BUN/Creatinine Ratio 12.9 Normal 8-20 Calcium 9.6 mg/dL Normal 8.6-10.3 Total Protein 7.6 g/dL Normal 6.4-8.9 Albumin 4.6 g/dL Normal 3.2-5.2 Globulin 3.0 g/dL Normal 2-4 Albumin/Globulin Ratio 1.5 Normal 1-3 Total Bilirubin 0.40 mg/dL Normal 0.2-1.0 Alkaline Phosphatase 85 U/L Normal 34-104 Alt 38 U/L Normal 7-52 Ast 26 U/L Normal 13-39 Egfr Non- 81.8 >60 Egfr 99.0 >60 3 Laboratory test finding 01/02/2019 [facility] Acetaminophen < 15 g/ mL 4 [phone] Alcohol < 10 mg/dL Normal <10 Salicylate < 2.50 mg/dL <30 TSH (Thyroid Stim Horm) 3.15 mcIU/mL Normal 0.34-5.60 Urine Culture And 01/02/2019 [facility] Urine Culture SEE RESULT 5 Sensitivities [phone] BELOW Laboratory test finding 10/05/2018 In House Hemoglobin A1c 5.3 1 Presumptive Positive Presumptive positive results are unconfirmed. 2 The urine specimen was tested at the listed cutoffs: Drug class test level (ng/mL) Amphetamines 500 Barbiturates 200 Benzodiazepine metabolites 200 Cocaine metabolites 150 Cannabinoids 50 Opiates 300 Pcp 25 Specimen was received without chain of custody. Results should be used for medical purposes only. 3 Because ethnic data is not always readily available, this report includes an eGFR for both -Americans and non- Americans. The National Kidney Disease Education Program (NKDEP) does not endorse the use of the MDRD equation for patients that are not between the ages of 18 and 70, are , have extremes of body size, muscle mass, or nutritional status, or are non- or non-. According to the National Kidney Foundation, irrespective of diagnosis, the stage of the disease is based on the level of kidney function: Stage Description GFR(mL/min/1.73 m(2)) 1 Kidney damage with normal or decreased GFR 90 2 Kidney damage with mild decrease in GFR 60-89 3 Moderate decrease in GFR 30-59 4 Severe decrease in GFR 15-29 5 Kidney failure <15 (or dialysis) 4 Therapeutic concentration: <50 ug/mL Toxic concentration: >120 ug/mL 5 SEE RESULT BELOW Name: RHONDA CAI : [address]: Nicolas Colvin MD Acct: [id number] Unit: [id number] AGE: 63 Location: [facility] 212- Re01/02/19 SEX: M Status: ADM IN SPEC: [id number] BERTO: 01/02/19-[address] [facility] [address]: Javi Cortez MD REQ: [id number] RECD: 01/02/19 STATUS: MARISELA SMITH DR: Gokul Mcginnis MD _ SOURCE: URINE SPDESC: ORDERED: Urine Culture Procedure Result Reported Site Urine Culture Final 01/03/19- 1207 ML No Growth (<1,000 CFU/mL) * ML - Main Lab . END OF REPORT DEPARTMENT OF PATHOLOGY, [address] [place] [address] Joshua Penaloza M.D. Director [facility] # [id number] Procedures Date Code Description Status 10/05/2018 52254 Electrocardiogram Complete Completed 05/29/2014 [id number] Colonoscopy Completed Medical Devices Description No Information Available Encounters Type Date Location Provider Dx Diagnosis Office Visit 01/22/2019 Main Office Gokul Mcginnis, [place] Essential ( primary) 9:45a M.D. hypertension F41.1 Generalized anxiety disorder F33.9 Major depressive disorder, recurrent, unspecified F41.0 Panic disorder [episodic paroxysmal anxiety] Office Visit 11/26/2018 8:30a Main Office Gokul Mcginnis F41.1 Generalized anxiety M.D. disorder F33.9 Major depressive disorder, recurrent, unspecified G47.00 Insomnia, unspecified H53.2 Diplopia I10 Essential (primary) hypertension E78.00 Pure hypercholesterolemia, unspecified Office Visit 10/19/2018 11:45a Main Office Gokul Mcginnis F41.1 Generalized anxiety M.D. disorder G47.00 Insomnia, unspecified F33.9 Major depressive disorder, recurrent, unspecified I10 Essential (primary) hypertension Office Visit 10/05/2018 9:30a Main Office Gokul Mcginnis, R73.01 Impaired fasting M.D. glucose I10 Essential (primary) hypertension F33.9 Major depressive disorder, recurrent, unspecified F41.1 Generalized anxiety disorder G47.00 Insomnia, unspecified G25.81 Restless legs syndrome Office Visit 09/22/2018 9:00a Main Office Gokul Mcginnis, F33.9 Major depressive M.D. disorder, recurrent, unspecified F41.1 Generalized anxiety disorder G47.00 Insomnia, unspecified Office Visit 08/29/2018 2:45p Main Office Gokul Mcginnis, F41.1 Generalized anxiety M.D. disorder F33.9 Major depressive disorder, recurrent, unspecified G47.00 Insomnia, unspecified Office Visit 08/06/2018 4:15p Main Office Gokul Mcginnis, Z86.711 Personal history M.D. of pulmonary embolism F41.1 Generalized anxiety disorder G25.81 Restless legs syndrome F33.9 Major depressive disorder, recurrent, unspecified G47.00 Insomnia, unspecified Assessments Date Code Description Provider 02/04/2019 Z23 Encounter for immunization Gokul Mcginnis M.D. 02/04/2019 F41.1 Generalized anxiety disorder Gokul Mcginnis M.D. 02/04/2019 F41.0 Panic disorder [episodic paroxysmal anxiety] Gokul Mcginnis M.D. 02/04/2019 G47.00 Insomnia, unspecified Gokul Mcginnis M.D. 01/22/2019 I10 Essential (primary) hypertension Gokul Mcginnis M.D. 01/22/2019 F41.1 Generalized anxiety disorder Gokul Mcginnis M.D. 01/22/2019 F33.9 Major depressive disorder, recurrent, Gokul Mcginnis M.D. unspecified 01/22/2019 F41.0 Panic disorder [episodic paroxysmal anxiety] Gokul Mcginnis M.D. 11/26/2018 F41.1 Generalized anxiety disorder Gokul Mcginnis M.D. 11/26/2018 F33.9 Major depressive disorder, recurrent, Gokul Mcginnis M.D. unspecified 11/26/2018 G47.00 Insomnia, unspecified Gokul Mcginnis M.D. 11/26/2018 H53.2 Diplopia Gokul Mcginnis M.D. 11/26/2018 I10 Essential (primary) hypertension Gokul Mcginnis M.D. 11/26/2018 E78.00 Pure hypercholesterolemia, unspecified Gokul Mcginnis M.D. 10/19/2018 F41.1 Generalized anxiety disorder Gokul Mcginnis M.D. 10/19/2018 G47.00 Insomnia, unspecified Gokul Mcginnis M.D. 10/19/2018 F33.9 Major depressive disorder, recurrent, Gokul Mcginnis M.D. unspecified 10/19/2018 I10 Essential (primary) hypertension Gokul Mcginnis M.D. 10/05/2018 R73.01 Impaired fasting glucose Gokul Mcginnis M.D. 10/05/2018 I10 Essential (primary) hypertension Gokul Mcginnis M.D. 10/05/2018 F33.9 Major depressive disorder, recurrent, Gokul Mcginnis M.D. unspecified 10/05/2018 F41.1 Generalized anxiety disorder Gokul Mcginnis M.D. 10/05/2018 G47.00 Insomnia, unspecified Goklu Mcginnis M.D. 10/05/2018 G25.81 Restless legs syndrome Gokul Mcginnis M.D. 09/22/2018 F33.9 Major depressive disorder, recurrent, Gokul Mcginnis M.D. unspecified 09/22/2018 F41.1 Generalized anxiety disorder Gokul Mcginnis M.D. 09/22/2018 G47.00 Insomnia, unspecified Gokul Mcginnis M.D. 08/29/2018 F41.1 Generalized anxiety disorder Gokul Mcginnis M.D. 08/29/2018 F33.9 Major depressive disorder, recurrent, Gokul Mcginnis M.D. unspecified 08/29/2018 G47.00 Insomnia, unspecified Gokul Mcginnis M.D. 08/06/2018 Z86.711 Personal history of pulmonary embolism Gokul Mcginnis M.D. 08/06/2018 F41.1 Generalized anxiety disorder Gokul Mcginnis M.D. 08/06/2018 G25.81 Restless legs syndrome Gokul Mcginnis M.D. 08/06/2018 F33.9 Major depressive disorder, recurrent, Gokul cMginnis M.D. unspecified 08/06/2018 G47.00 Insomnia, unspecified Gokul Mcginnis M.D. Plan of Treatment Future Appointment(s):05/31/2019 8:55 am - Gokul Mcginnis M.D. at Main [id number]/04/2019 - Gokul Mcginnis M.D.Z23 Encounter for immunizationComments: Encouraged flu vaccine wc was accepted. VIS provided.F41.1 Generalized anxiety disorderNew Medication:Clonazepam 0.5 mg - 1/2 tablet 3x/day as needed for anxietyComments:Seems much more likely that his recentdecline is related to D/ Cing clonazepam and not related to S/Efrom venlafaxine. He will continue on clonazepam for now, f/u w/ psychiatric therapist (who is taking over his psych med management ) as scheduled in 2 days, f/u w/ counselor as ascheduled.F41.0 Panic disorder [ episodic paroxysmal anxiety]G47.00 Insomnia, unspecified Functional Status Description No Information Available Mental Status Description No Information Available Referrals Description No Information Available
--- OUTSIDE RECORDS SUMMARY | 2019-02-18 21:15 | XMS REPORT | Continuity of Care Document ---
:1955 External Reference #:[id number] Author Name Gokul Mcginnis M.D. Address [address] [facility] [address] [place] [address] Care Team Providers Name Role Phone [facility] - Care Team Information Nail Professional [phone] Gastroenterology Karlo Dennison MD - Dermatology Care Team Information Nail Professional Dr Jackson Alcaraz Care Team Information Nail Professional [phone] Problems Active Problems Provider Date Essential hypertension [...] Medications SIG Qnty Indications Ordering Provider Date Venlafaxine HCL ER take one capsule F41.1 Unknown 01/21/2019 75mg by mouth every Caps ER 24HR morning for mood F33.9 Clonazepam 1 tablet by mouth F41.1 Unknown 01/14/2019 0.5mg Tablets 2x/day, taper as directed; for anxiety Mirtazapine 1 tablet by mouth 180tabs F41.1 Gokul Mcginnis, 10/19/2018 15mg Tablets 2x/day; for mood and M.D. sleep F33.9 G47.00 Xarelto take 1 tablet [...] (Ergocalciferol) weekly for vitamin d M.D. deficiency [id number] Capsules Tamsulosin HCL Take 1 Capsule Daily 90caps N40.1 Gokul Mcginnis, 2010 0.4mg 30 Minutes After M.D. Capsules A Meal Ibuprofen 1 by mouth every 240tabs M75.82 Gokul Mcginnis, 08/26/2010 800mg Tablets 8-12 hours as needed M.D. for pain . take with food M25.512 Cpap 8 cm pressure G47.33 Gokul Mcginnis M.D. 08/31/2008 Hydrocortisone Valerate prn Unknown 0.2% Cream History Medications Cipro 1 tab by mouth 14tabs Gokul Mcginnis, 11/21/2018 - 500mg Tablets twice a day x 7 M.D. 11/25/2018 days if needed for traveler's diarrhea Sertraline HCL Take 1/2 Tablet By F41.1 Unknown 11/13/2018 - Mouth Every Morning 01/21/2019 100mg Tablets For 5 Days, Then Take 1 Tablet [...] Gokul Mcginnis, 08/10 - every day for darby KaufmanJose 11/13/2018 10mg Tablets Xarelto Take 1 Tablet By Unknown 08/02/2018 - 15mg Tablets Mouth Every 12 11/25/2018 Hours to complete 21 day course, then can switch to 20 mg daily Cefpodoxime Proxetil Take 1 Tablet By Unknown 08/02/2018 - Mouth Every 12 08/07/2018 200mg Tablets Hours x 5 days Azithromycin Take 1 Tablet By Unknown 08/02/2018 - 250mg Mouth Every Day x 4 08/06/2018 Tablets days Medications Administered in Office Medication SIG Qnty Indications Ordering Provider Date injection, kenalog, 10 mg Lynne Mars RPA-C 03/02/2015 Injection SC/Im Injections Lynne Mars RPA-C 03/02/2015 Injection Immunizations CPT Code Status Date Vaccine Lot # [id number] Given 12/29/2017 Shingrix Zoster (Shingles) Vaccine (HZV) [id number] Recomb,Subnit,Adjuvanted 18619 Given 10/10/2017 Shingrix Zoster (Shingles) Vaccine (HZV) [id number] Recomb,Subnit,Adjuvanted U-Flu Given 03/02/2015 Influenza,Unspecified 50364 Given 07/15/2014 Zostavax [id number] 47766 Given 03/13/2013 Flu, Split Virus 3Yrs 15411 Given 03/09/2011 Flu, Split Virus 3Yrs 83293 Given 09/01/2009 Adacel or Boostrix, TDaP [id number] 95153 Given 05/29/1999 Td Immunization Vital Signs Date Vital Result Comment 01/22/2019 10:31am BP Systolic 108 mmHg BP Diastolic 66 mmHg BP Systolic Recheck 124 mmHg R arm sitting BP Diastolic Recheck 86 mmHg R arm sitting Weight 163.00 lb 11/26/2018 8:41am BP Systolic 110 mmHg BP Diastolic 68 mmHg BP Systolic Recheck 120 mmHg R arm sitting BP Diastolic Recheck 80 mmHg R arm sitting Weight 166.00 lb with shoes Results Test Date Facility Test Result H/L Range Note CBC Auto Diff 01/02/2019 [facility] White Blood 9.2 10^3/uL Normal 3.5-10.8 [phone] Count Red Blood Count 5.02 10^6/uL Normal [...] Blood Cells % 0.1 Urine Drug 01/02/2019 [facility] Urine Amphetamine None Detected None Detect SCR ED & [phone] Screen Pain Clinic Urine Barbiturates Screen None Detected None Detect Urine Benzodiazepine Screen Presumptive Posi <SEE NOTE> Abnormal None Detect 1 Urine Cannabinoids Screen None Detected None Detect Urine Cocaine Screen None Detected None Detect Urine Opiates Screen None Detected None Detect Urine Phencyclidine Screen None Detected None Detect 2 Urinalysis Profile 01/02/2019 [facility] Urine Color Yellow [phone] Urine Appearance Clear Urine Specific [place] 1.025 Normal 1.010-1.030 Urine pH 5.0 Normal [...] Present Abnormal Absent Comp Metabolic Panel 01/02/2019 [facility] Sodium 141 mmol/L Normal 135-145 [phone] Potassium 4.1 mmol/L Normal 3.5-5.0 Chloride 110 [...] 99.0 >60 3 Laboratory test finding 01/02/2019 [facility] Acetaminophen < 15 g/ mL 4 [phone] Alcohol < 10 mg/dL Normal <10 Salicylate < 2.50 mg/dL <30 TSH (Thyroid Stim Horm) 3.15 mcIU/mL Normal 0.34-5.60 Urine Culture And 01/02/2019 [facility] Urine Culture SEE RESULT 5 Sensitivities [phone] BELOW Laboratory test 10/05/2018 In House Hemoglobin A1c 5.3 finding CBC Auto Diff 07/31/2018 [facility] White Blood 9.0 10^3/uL Normal 3.5-6 [phone] Count 0.8 Red Blood Count 4.07 10^6/uL Normal 4.00-5.40 Hemoglobin 13.1 g/dL Low 14.0-18.0 Hematocrit 39 % Low 42-52 Mean Corpuscular Volume 96 fL High 80-94 Mean Corpuscular Hemoglobin 32 pg High 27-31 Mean Corpuscular HGB Conc 34 g/dL Normal 31-36 Red Cell Distribution Width 13 % Normal 10.5-15 Platelet Count 264 10^3/uL Normal 150-450 Mean Platelet Volume 9.0 fL Normal 7.4-10.4 Abs Neutrophils 6.3 10^3/uL Normal 1.5-7.7 Abs Lymphocytes 1.4 10^3/uL Normal 1.0-4.8 Abs Monocytes 0.9 10^3/uL High 0-0.8 Abs Eosinophils 0.3 10^3/uL Normal 0-0.6 Abs Basophils 0.1 10^3/uL Normal 0-0.2 Abs Nucleated RBC 0 10^3/uL Granulocyte % 70.2 % Lymphocyte % 15.9 % Monocyte % 9.5 % Eosinophil % 3.6 % Basophil % 0.8 % Nucleated Red Blood Cells % 0 Inr/Protime 07/31/2018 [facility] Inr 1.08 High 0.77-1.02 [phone] Laboratory test 07/31/2018 [facility] Partial 29.7 seconds Normal 26.0-36.3 finding [phone] Thrombo Time PTT Lactic Acid 0.7 mmol/L Normal 0.5-2.0 6 Comp Metabolic Panel 07/31/2018 [facility] Sodium 136 mmol/L Normal 135-145 [phone] Potassium 3.8 mmol/L Normal 3.5-5.0 Chloride 111 mmol/L Normal 101-111 Co2 Carbon Dioxide 19 mmol/L Low 22-32 Anion Gap 6 mmol/L Normal 2-11 Glucose 138 mg/dL High 70-100 Blood Urea Nitrogen 13 mg/dL Normal 6-24 Creatinine 0.93 mg/dL Normal 0.67-1.17 BUN/Creatinine Ratio 14.0 Normal 8-20 Calcium 8.6 mg/dL Normal 8.6-10.3 Total Protein 6.6 g/dL Normal 6.4-8.9 Albumin 3.9 g/dL Normal 3.2-5.2 Globulin 2.7 g/dL Normal 2-4 Albumin/Globulin Ratio 1.4 Normal 1-3 Total Bilirubin 0.50 mg/dL Normal 0.2-1.0 Alkaline Phosphatase 85 U/L Normal 34-104 Alt 46 U/L Normal 7-52 Ast 39 U/L Normal 13-39 Egfr Non- 81.8 >60 Egfr 99.0 >60 7 Laboratory test 07/31/2018 [facility] C Reactive 117.08 mg/L High < 8.01 finding [phone] Protein Troponin-I (TnI) 0.00 ng/mL <0.04 8 Hemoglobin A1c (Glyco HGB) 6.0 % High 4.0-5.6 9 Rapid Influenza A B Antigen SEE RESULT BELOW 10 Blood Culture SEE RESULT BELOW 11 Rapid Influenza A 07/31/2018 [facility] Influenza A NEGATIVE Negative 12 & B Molecular [phone] Molecular Influenza B Molecular NEGATIVE Negative Laboratory test 07/31/2018 [facility] Troponin-I (TnI) 0.00 ng/mL < 0.04 13 finding [phone] B-Type Natriuretic Peptide BNP 31 pg/mL <=100 CBC Auto Diff 07/30/2018 [facility] White Blood 8.9 10^3/uL Normal 3.5-10.8 14 [phone] Count Red Blood Count 4.20 10^6/uL Normal 4.00-5.40 Hemoglobin 13.7 g/dL Low 14.0-18.0 Hematocrit 40 % Low 42-52 Mean Corpuscular Volume 96 fL High 80-94 Mean Corpuscular Hemoglobin 33 pg High 27-31 Mean Corpuscular HGB Conc 34 g/dL Normal 31-36 Red Cell Distribution Width 13 % Normal 10.5-15 Platelet Count 276 10^3/uL Normal 150-450 Mean Platelet Volume 9.6 fL Normal 7.4-10.4 Abs Neutrophils 5.8 10^3/uL Normal 1.5-7.7 Abs Lymphocytes 1.8 10^3/uL Normal 1.0-4.8 Abs Monocytes 0.8 10^3/uL Normal 0-0.8 Abs Eosinophils 0.3 10^3/uL Normal 0-0.6 Abs Basophils 0.1 10^3/uL Normal 0-0.2 Abs Nucleated RBC 0 10^3/uL Granulocyte % 65.9 % Lymphocyte % 20.1 % Monocyte % 9.6 % Eosinophil % 3.5 % Basophil % 0.9 % Nucleated Red Blood Cells % 0 Comp Metabolic Panel 07/30/2018 [facility] Sodium 138 mmol/L Normal 135-145 [phone] Potassium 4.3 mmol/L Normal 3.5-5.0 Chloride 108 mmol/L Normal 101-111 Co2 Carbon Dioxide 23 mmol/L Normal 22-32 Anion Gap 7 mmol/L Normal 2-11 Calcium 8.8 mg/dL Normal 8.6-10.3 Albumin 4.0 g/dL Normal 3.2-5.2 Total Bilirubin 0.50 mg/dL Normal 0.2-1.0 Glucose 161 mg/dL High 70-100 Blood Urea Nitrogen 13 mg/dL Normal 6-24 Creatinine 1.05 mg/dL Normal 0.67-1.17 BUN/Creatinine Ratio 12.4 Normal 8-20 Total Protein 6.3 g/dL Low 6.4-8.9 Globulin 2.3 g/dL Normal 2-4 Albumin/Globulin Ratio 1.7 Normal 1-3 Alkaline Phosphatase 99 U/L Normal 34-104 Alt 38 U/L Normal 7-52 Ast 35 U/L Normal 13-39 Egfr Non- 71.1 >60 Egfr 86.0 >60 15 Laboratory test finding 07/30/2018 [facility] Lipase 40 U/L Normal 11.0-82.0 16 [phone] C Reactive Protein 117.55 mg/L High <8.01 17 Poc Urinalysis 07/30/2018 [facility] Poc Glucose, Urine Negative Negative [phone] Poc Bilirubin, Urine Negative Negative Poc Ketone, Urine Negative Negative Poc Specific [place], Urine 1.015 Normal 1.010-1.030 Poc Blood, Urine Trace-intact Abnormal Negative Poc pH, Urine 7.0 Normal 5-9 Poc Protein, Urine 1+ Abnormal Negative Poc Urobilinogen, Urine 1.0 Negative Poc Nitrite, Urine Negative Negative Poc Leukocytes, Urine Negative Negative Poc Color, Urine Yellow Poc Clarity, Urine Clear 18 1 Presumptive Positive Presumptive positive results are [...] >120 ug/mL 5 SEE RESULT BELOW Name: PARAS CAI : [address]: Nicolas Colvin MD Acct: [id number] Unit: [id number] AGE: 63 Location: [address] Re01/02/19 SEX: M Status: ADM IN SPEC: [id number] BERTO: 01/02/19-12[address] [facility] DR: Javi Cortez MD REQ: [id number] RECD: 01/02/193949 STATUS: MARISELA SMITH DR: Gokul Mcginnis MD _ SOURCE: URINE SPDESC: ORDERED: Urine Culture Procedure Result Reported Site Urine Culture Final 01/03/19- 1207 ML No Growth (<1,000 CFU/mL) * ML - Main Lab . END OF REPORT DEPARTMENT OF PATHOLOGY, [address] [place] [address] Joshua Penaloza M.D. Director [facility] # [id number] 6 [facility] Severe Sepsis and Septic Shock Management Bundle Measure requires all lactic acids initially measuring >2.0 mmol/L be repeated. 7 Because ethnic data is not always readily [...] 15-29 5 Kidney failure <15 (or dialysis) 8 Troponin-I testing on Plasma Separator Tubes (PST) has a known false positive rate of 0.20-0.40%. All positive troponins reflex immediate secondary confirmatory testing. 9 Therapeutic target for the treatment of diabetes mellitus patients is <7% HBA1C, and in selective patients <6.0%. Please refer to [place] [employer] diabetic care guidelines for further information. 10 SEE RESULT BELOW Name: PARAS CAI : [address]: Nicho Maynard MD Acct: [id number] Unit: [id number] AGE: 63 Location: [place] [address] Re07/31/18 SEX: M Status: ADM Liss SPEC: [id number] BERTO: 07/31/18 [facility] [address]: Edmond German MD REQ: [id number] RECD: 07/31/18 STATUS: COMP [facility] DR: Gokul Mcginnis MD _ SOURCE: [facility]: ORDERED: Flu A B Request Procedure Result Reported Site Rapid Influenza A B Request Final 07/31/18- 1522 ML Specimen received for Influenza A/B Molecular testing * ML - Main Lab . END OF REPORT DEPARTMENT OF PATHOLOGY, [address] [place] [address] Joshua Penaloza M.D. Director [facility] # [id number] 11 SEE RESULT BELOW Name: PARAS CAI : [address]: Melanie Sales MD Acct: [id number] Unit: [id number] AGE: 63 Location: [place] [address] Re07/31/18 Dis: 08/02/18 SEX: M Status: DIS IN SPEC: [id number] BERTO: 07/31/[address]: Edmond German MD REQ: [id number] RECD: 07/31/18 STATUS: MARISELA SMITH DR: Gokul Mcginnis MD _ SOURCE: BLOOD,VENO SPDESC: ORDERED: Blood Cult Procedure Result Reported Site Aerobic Culture Bottle Final 08/05/18- 412 ML No Growth Day 5 Anaerobic Culture Bottle Final 08/05/18- 412 ML No Growth Day 5 * ML - Main Lab . END OF REPORT DEPARTMENT OF PATHOLOGY, [address] [place] [address] Joshua Penaloza M.D. Director [facility] # [id number] 12 Rand Butter: [id number] Troponin-I testing on Plasma Separator Tubes (PST) has a known false positive rate of 0.20-0.40%. All positive troponins reflex immediate secondary confirmatory testing. 14 [id number] 15 Because ethnic data is not always readily [...] 15-29 5 Kidney failure <15 (or dialysis) 16 [id number] 17 [id number] 18 Rand Butter: [id number] Procedures Date Code Description Status 10/05/2018 91413 Electrocardiogram Complete Completed 05/29/2014 90522588 Colonoscopy Completed Medical Devices Description No Information Available Encounters Type Date Location Provider Dx Diagnosis Office Visit 01/22/2019 Main Office Gokul Mcginnis, I10 Essential ( primary) 9:45a M.D. hypertension F41.1 Generalized anxiety disorder F33.9 Major depressive disorder, recurrent, unspecified F41.0 Panic disorder [episodic paroxysmal anxiety] Office Visit 11/26/2018 8:30a Main Office Gokul Mcginnis, F41.1 Generalized anxiety M.D. disorder F33.9 Major depressive disorder, recurrent, unspecified G47.00 Insomnia, unspecified H53.2 Diplopia I10 Essential (primary) hypertension E78.00 Pure hypercholesterolemia, unspecified Office Visit 10/19/2018 11:45a Main Office Gokul Mcginnis, F41.1 Generalized anxiety M.D. disorder G47.00 Insomnia, [...] Insomnia, unspecified Assessments Date Code Description Provider 01/22/2019 I10 Essential (primary) hypertension Gokul Mcginnis [...] Gokul Mcginnis M.D. 11/26/2018 E78.00 Pure hypercholesterolemia, geneified Gokul Mcginnis M.D. 10/19/2018 F41.1 Generalized anxiety [...] Gokul Mcginnis M.D. 10/05/2018 G47.00 Insomnia, unspecified Gokul Mcginnis M.D. 10/05/2018 G25.81 Restless legs syndrome [...] 08/06/2018 F33.9 Major depressive disorder, recurrent, Gokul Mcginnis M.D. unspecified 08/06/2018 G47.00 Insomnia, unspecified Gokul Mcginnis M.D. Plan of Treatment Future Appointment(s):05/31/2019 8:55 am - Gokul Mcginnis M.D. at Main [facility]01/22/2019 - Gokul Mcginnis M.D.I10 Essential (primary) hypertensionNew Orders:Ua w/ luke, inhouse, Ordered: 01/22/19Comments:BP has gone up since starting venlafaxine but not to the point of needing to reintroduce enalapril ( wc he was on previously). Continue to observe. If BPs climbing hilario if he raises venlafaxine dose he will get back in touch. Otherwise f/u in May as planned.F41.1 Generalized anxiety [id number] Major depressive disorder, recurrent, [id number] Panic disorder [episodic paroxysmal anxiety] Functional Status Description No Information Available Mental Status Description No Information Available Referrals Description No Information Available
[2019-02-18 21:28] VITALS: BP 126/81
--- NOTE | 2019-02-18 21:50 | UC ---
General HPI - HPI Summary HPI Summary: 63-year-old male comes in with a chief complaint of a near syncopal episode. Patient accidentally took his clonidine 0.1 mg this evening at 5 PM. He then took his mirtazapine 15 mg at 8 PM. He was sitting down when he took it and when he stood up he felt lightheaded like he might pass out. He reports his blood pressure was low at home. He takes these medications for anxiety. His clonidine as prescribed for morning dose only. He feels his normal anxious self now. Does not feel lightheaded. - History of Current Complaint Chief Complaint: UCGeneralIllness Stated Complaint: ANXIETY DIZZINESS Time Seen by Provider: 02/18/19 21:32 Pain Intensity: 0 - Allergy/Home Medications Allergies/Adverse Reactions: Allergies Allergy/AdvReac Type Severity Reaction Status Date / Time No Known Allergies Allergy Verified 02/18/19 21:28 Home Medications: Home Medications Doxepin HCl [Silenor] 3 mg PO QPM 02/18/19 [History Confirmed 02/18/19] cloNIDine TAB* [Catapres 0.1 MG TAB*] 0.1 mg PO DAILY 02/18/19 [History Confirmed 02/18/19] clonazePAM TAB(*) [KlonoPIN TAB(*)] 0.5 mg PO PRN 02/18/19 [History] PMH/Surg Hx/FS Hx/Imm Hx Previously Healthy: Yes Endocrine History: Dyslipidemia Cardiovascular History: Hypertension Psychological History: Anxiety, Depression Other History Of: Negative For: Anticoagulant Therapy - Surgical History Surgical History: Yes Surgery Procedure, Year, and Place: Tonsilectomy 3 years old. Vasectomy 1994. 11/22/2014 - lap appy. LEFT SHOULDER ROTATOR CUFF REPAIR 07/2015 - Family History Known Family History: Positive: Hypertension, Other - dementia - Social History Alcohol Use: None Alcohol Amount: quit September 2017 Substance Use Type: None Smoking Status (MU): Never Smoked Tobacco - Immunization History Most Recent Influenza Vaccination: 2018 Most Recent Tetanus Shot: 4-5 years ago Most Recent Pneumonia Vaccination: none Review of Systems All Other Systems Reviewed And Are Negative: Yes Constitutional: Positive: Other - SEE HPI Skin: Positive: Negative Eyes: Positive: Negative ENT: Positive: Negative Respiratory: Positive: Negative Cardiovascular: Positive: Negative Gastrointestinal: Positive: Negative Motor: Positive: Negative Musculoskeletal: Positive: Negative Neurological: Positive: Negative Psychological: Positive: Anxious Is Patient Immunocompromised?: No Physical Exam Triage Information Reviewed: Yes Appearance: Well-Appearing, No Pain Distress, Well-Nourished Vital Signs: Initial Vital Signs Temp 97.3 F 02/18/19 21:21 Pulse 81 02/18/19 21:21 Resp 18 02/18/19 21:21 BP 126/81 02/18/19 21:21 Pulse Ox 97 02/18/19 21:21 Vital Signs Reviewed: Yes Eye Exam: Normal Eyes: Positive: Conjunctiva Clear Neck: Positive: Supple Respiratory: Positive: No respiratory distress Musculoskeletal: Positive: Strength Intact, ROM Intact Neurological: Positive: Alert Psychological: Positive: Age Appropriate Behavior Skin Exam: Normal Course/Dx - Course Course Of Treatment: The patient is suspicious that taking the clonidine, which she normally only takes in the morning, accidentally before the mirtazapine evening dose contributed to his near syncopal episode when he got up suddenly from his chair. He has no other complaints no chest pain no shortness of breath. His blood pressure is normal here he feels normal again. We discussed not mixing the 2 medications in the future. Follow-up his primary care doctor. Reevaluate sooner if worse or any questions or concerns. - Diagnoses Provider Diagnosis: Near syncope Discharge ED - Sign-Out/Discharge Documenting (check all that apply): Patient Departure All imaging exams completed and their final reports reviewed: No Studies - Discharge Plan Condition: Stable Disposition: HOME Patient Education Materials: Near Syncope (ED) Referrals: Gokul Mcginnis MD [Primary Care Provider] - Additional Instructions: FOLLOW UP WITH YOUR DOCTOR IF NOT COMPLETELY IMPROVED. DO NOT TAKE THE CLONIDINE WITH YOUR SILENOR OR MIRTAZAPINE IT CAN CAUSE CHANGES IN BLOOD PRESSURE. GET RECHECKED SOONER IF YOUR CONDITION WORSENS OR ANY QUESTIONS OR CONCERNS. - Billing Disposition and Condition Condition: STABLE Disposition: Home
== END 2019-02-18 21:58 | disposition home or self-care (01) ==
LOC: UCEAST 21:09
DX: R55 Syncope and collapse (principal); F41.9 Anxiety disorder, unspecified; F32.9 Major depressive disorder, single episode, unspecified; E78.5 Hyperlipidemia, unspecified; I10 Essential (primary) hypertension
CPT/HCPCS: 99212; G0463